=== PATIENT | female | born 1995 | race Caucasian/White ===

== ENCOUNTER 2022-07-06 06:02 | Emergency (ER) | payer BC, SELFPAY ==
--- NOTE | ~2022-07-06 | XR_ITS ---
EXAMINATION: XR chest 1V portable DATE: 07/06/2022 07:07 INDICATION: Shortness of breath. TECHNIQUE: A single frontal view of the chest was obtained. COMPARISON: CT abdomen and pelvis 08/20/2017 FINDINGS: The chest demonstrates clear lungs without pneumonia, pleural effusion, or pneumothorax. Th e heart size is normal. IMPRESSION: 1. No acute cardiopulmonary disease. Reviewed, dictated and finalized at location A.
[2022-07-06 06:18] VITALS: BP 123/90; PULSE 81; RESP 30
--- NOTE | 2022-07-06 06:29 | ED.GENADULT ---
HPI - General Adult General Chief complaint: Upper Respiratory Infection <Markel Prater MD - Last Filed: 07/06/22 07:01> Stated complaint: covid positive 07/04 <Markel Prater MD - Last Filed: 07/06/22 07:01> Time Seen by Provider: 07/06/22 06:16 <Markel Prater MD - Last Filed: 07/06/22 07:01> History of Present Illness HPI narrative: Patient is a 26-year-old female who presents ER with reports of shortness of breath. Was diagnosed on 07/04 with COVID-19 after taking a test. Became symptomatic 1 day prior. Had a fever yesterday. Reports that she has sore throat with sinus congestion and postnasal drip. Occasional cough. Pain with swallowing. She was tested in urgent care. She is not on any antiviral medication. <Markel Prater MD - Last Filed: 07/06/22 07:01> Related Data Allergies/adverse reactions: Allergies Allergy/AdvReac Type Severity Reaction Status Date / Time Penicillins Allergy Severe Hives / Verified 01/04/22 08:46 Red Face <Markel Prater MD - Last Filed: 07/06/22 07:01> Review of Systems Review of Systems: All systems reviewed & are unremarkable except as noted in HPI and below <Markel Prater MD - Last Filed: 07/06/22 07:01> Constitutional: Constitutional: Denies chills, Denies fatigue and Reports fever(s) <Markel Prater MD - Last Filed: 07/06/22 07:01> ENT: Reports nasal congestion and Reports sore throat <Markel Prater MD - Last Filed: 07/06/22 07:01> Cardiovascular: Cardiovascular: Denies chest pain, Denies rapid heart rate and Denies radiating jaw, neck or arm pain <Markel Prater MD - Last Filed: 07/06/22 07:01> Respiratory: Respiratory: Reports cough and Reports dyspnea <Markel Prater MD - Last Filed: 07/06/22 07:01> [facility] Past Medical History Medical History: Medical History (Updated 07/06/22 @ 07:25 by Lizette Viveros MD) Kidney stones <Markel Prater MD - Last Filed: 07/06/22 07:01> Surgical History Surgical History: Surgical History (Updated 07/06/22 @ 06:39 by Markel Prater MD) No pertinent past surgical history <Markel Prater MD - Last Filed: 07/06/22 07:01> Family History Family History: Family History Other Acute myocardial infarction Breast cancer Diabetes mellitus Hypertension <Markel Prater MD - Last Filed: 07/06/22 07:01> Social History Social History: Social History (Updated 01/04/22 @ 08:47 by Opal Gamino MA) Smoking status: Never smoker Alcohol intake: never Substance use: never Substance use type: does not use 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 HEAD: Normocephalic, atraumatic. EYES: PERRL and EOMI. ENT: Mucous membranes moist. Normal-appearing posterior oropharynx. No tonsillar hypertrophy. Uvula nonedematous and midline. NECK: Supple. CHEST: Clear to auscultation. No respiratory distress. HEART: Regular rate and rhythm. Normal peripheral pulses. ABDOMEN: Soft, nontender, nondistended. EXTREMITIES: Normal range of motion. No edema. NEURO: Alert and oriented x3. PSYCH: Normal mood and affect. <Markel Prater MD - Last Filed: 07/06/22 07:01> Course Course Emergency Course: PERC 0. XR pending. <Markel Prater MD - Last Filed: 07/06/22 07:01> Reevaluation(s) Reevaluation #1: Pt CXR normal. Vital signs stable. Pt given decadron and I am hoping this will help with the pharyngitis she is experiencing. We discussed trying to eat cool liquid to help her tolerate PO intake. No sign of space o
[2022-07-06] MEDS: LIDOCAINE HCL 2% VISC SOLN 15 ML UDC PO (06:37)
[2022-07-06 07:19] VITALS: BP 127/88; PULSE 76; RESP 18; O2SAT 99
[2022-07-06] MEDS: DEXAMETHASONE 2 MG TABLET 6 MG PO (07:20)
== END 2022-07-06 07:38 | disposition home or self-care (01) ==
PROVIDERS: Emergency Provider Emergency Medicine; PCP Family Medicine
DX: U07.1 COVID-19 (principal); J06.9 Acute upper respiratory infection, unspecified; Z87.442 Personal history of urinary calculi
CPT/HCPCS: 71045; 99283; J8540

== ENCOUNTER 2023-08-07 15:52 | Outpatient (CLI) | payer BC, SELFPAY ==
--- NOTE | ~2023-08-07 | CT_ITS ---
EXAMINATION: CT abdomen pelvis w con DATE: 08/07/2023 16:36 INDICATION: Acute left upper quadrant abdominal pain. TECHNIQUE: Computed tomography (CT) of the abdomen and pelvis was performed with 100 mL Omnipaque-350 intravenous contrast. Automated exposure control and iterative reconstruction technique were employe d. The dose-length product was 507.90 mGy-cm. COMPARISON: None FINDINGS: Lung bases are clear. Heart size is normal. No pericardial or pleural effusion. Gallbladder is not vi sualized and likely surgically absent. Liver, spleen, pancreas, bilateral adrenal glands and kidneys are normal. Bowels including the appendix are normal. Bladder, retroverted uterus and left adnexa are unremarkable. 2.1 cm peripherally enhancing corpus luteum cyst in the right ovary. No free intraperi toneal gas or fluid. No pathologically enlarged bones are unremarkable. lymphadenopathy. IMPRESSION: 1. Right ovarian corpus luteum cyst. No other acute intra-abdominal/pelvic process. Reviewed, dictated and finalized at location A. IMPRESSION: 1. Right ovarian corpus luteum cyst. No other acute intra-abdominal/pelvic proc ess.
[2023-08-07 17:14] LABS: Basophils Percent Auto 0.4 % (0.2-1.2); Eosinophils Absolute Auto 0.1 K/mm3 (0-0.3); Eosinophils Percent Auto 1.2 % (0-4.4); Hemoglobin 14.3 g/dL (12.0-15.0); Immature Granulocyte Absolute 0.03 K/mm3 (0.00-0.031); Immature Granulocyte Percent A 0.4 % (0-0.5); Lymphocytes Absolute Auto 2.23 K/mm3 (0.9-3.2); Lymphocytes Percent Auto 28.7 % (18.3-44.2); Mean Corpuscular HGB Conc 33.3 g/dl (32-36); Mean Corpuscular Hemoglobin 29.2 pg (26-34); Mean Corpuscular Volume 87.9 fl (80-100); Mean Platelet Volume 9.3 fl (7.4-10.4); Monocytes Absolute Auto 0.7 K/mm3 (0.1-0.6); Monocytes Percent Auto 8.4 % (2.6-8.5); Neutrophils Absolute Auto 4.7 K/mm3 (1.3-6.7); Neutrophils Percent Auto 60.9 % (45.5-73.1); Platelet Count Result 300 k/mm3 (150-375); Red Blood Count 4.89 M/mm3 (4.2-5.4); Red Cell Distribution Width 12.6 % (11.5-14.5); White Blood Count 7.8 K/mm3 (4.5-10.0)
[2023-08-07 17:45] LABS: Alanine Aminotransferase 20 U/L (6-35); Albumin Level 4.7 g/dL (3.5-5.1); Alkaline Phosphatase 52 U/L (38-126); Anion Gap 10 mmol/L (8-16); Aspartate Amino Transferase 24 U/L (14-36); Bilirubin,Total 0.6 mg/dL (0.2-1.3); Blood Urea Nitrogen 11 mg/dL (7-17); Calcium 9.4 mg/dL (8.4-10.2); Carbon Dioxide 26 mmol/L (22-30); Chloride 99 mmol/L (98-107); Cholesterol 185 mg/dL (0-200); Estimated Glomerular Filt Rate > 60; Glucose 92 mg/dL (65-110); HDL Direct 55 mg/dL; Potassium 4.5 mmol/L (3.4-5.0); Sodium 135 mmol/L (137-145); Triglycerides 85 mg/dL (<150)
[2023-08-07 17:57] LABS: LDL Cholesterol Direct 111 mg/dL
[2023-08-07 18:47] LABS: Free T4 Free Thyroxine 1.28 ng/mL (0.78-2.19)
== END 2023-08-07 15:53 | disposition home or self-care (01) ==
PROVIDERS: PCP Family Medicine; Visit Provider Nurse Practitioner Family
DX: R10.9 Unspecified abdominal pain (principal); Z13.220 Encounter for screening for lipoid disorders; Z13.29 Encounter for screening for other suspected endocrine disorder; N83.201 Unspecified ovarian cyst, right side
CPT/HCPCS: 36415; 74177; 80053; 80061; 84439; 84443; 85025; Q9967

== ENCOUNTER 2025-01-15 16:56 | Outpatient (CLI) | payer BC, SELFPAY ==
[2025-01-15 17:13] LABS: Basophils Percent Auto 0.4 % (0.2-1.2); Eosinophils Absolute Auto 0.1 K/mm3 (0-0.3); Hematocrit 43.7 % (37.0-47.0); Hemoglobin 14.4 g/dL (12.0-15.0); Immature Granulocyte Absolute 0.01 K/mm3 (0.00-0.031); Immature Granulocyte Percent A 0.1 % (0-0.5); Lymphocytes Absolute Auto 2.55 K/mm3 (0.9-3.2); Lymphocytes Percent Auto 35.8 % (18.3-44.2); Mean Corpuscular Hemoglobin 29.1 pg (26-34); Mean Corpuscular Volume 88.3 fl (80-100); Mean Platelet Volume 9.1 fl (7.4-10.4); Monocytes Absolute Auto 0.6 K/mm3 (0.1-0.6); Monocytes Percent Auto 7.9 % (2.6-8.5); Neutrophils Absolute Auto 3.8 K/mm3 (1.3-6.7); Neutrophils Percent Auto 53.8 % (45.5-73.1); Platelet Count Result 295 k/mm3 (150-375); Red Blood Count 4.95 M/mm3 (4.2-5.4); Red Cell Distribution Width 12.5 % (11.5-14.5); White Blood Count 7.1 K/mm3 (4.5-10.0)
--- OUTSIDE RECORDS SUMMARY | 2025-01-15 17:38 | XMS_ITS | Clinical Summary ---
Author Organization [address] Address [address] [place] [id number] Care Team Providers Care Back Tender Cloth Printing Name Role Phone Stephany Serrato NP Primary Care Provider [phone] Daniella Garcia MD Unavailable [phone] Allergies Active Allergy Reactions Criticality Noted Date Comments Azithromycin Rash Medium 12/14/2016 In teens Penicillins Unknown 12/14/2016 As , rash Medications dicyclomine (BENTYL) 10 mg capsuleIndicati ons:Abdominal Pain with Cramps Take 1 capsule (10 mg total) by mouth 4 (four) times a day before meals and nightly 60 capsule 4 04/16/20 25 Active Additional Information Patient not taking.Reported on 12/10/2024 Active Problems No known active problems Encounters Date Type Department Care Team Description 12/10/2024 9:00 AM AUDIOMETRIC TECHNICIAN Office Visit [facility] at [address] [address] Bridget Soliman PA Pain and swelling of upper eyelid of left eye (Primary Dx) from Last 3 Months Immunizations Immunization Administration Dates Next Due DTP 04/15/1997,01/07/1997 DTP / HiB 02/12/1996 DTaP 06/04/2000 HPV, Quadrivalent 06/17/2010 HPV9 12/19/2016 Hep A, Adult 12/19/2016 Hep A, Ped Unspecified 06/17/2010 Hep B, Adolescent or Pediatric 01/07/1997,1995,1995 HiB 06/04/2000,04/15/1997,01/07/1997 IPV 06/04/2000 Influenza, Quadrivalent, Monica l Culture-based MDCK, Preservative Free, Antibiotic Free, Intramuscular 11/28/2021,08/28/2019 Influenza, Quadrivalent, Spl it, Preservative Free, Intramuscular 08/04/2018 Influenza, Split 06/17/2010 Influenza, Trivalent, IM (MDV) 08/12/2017 Influenza, Unspecified 08/07/2023(Deferr ed: Patient Refused),11/05/2022(Deferred: Patient Refused) MMR 06/04/2000,01/07/1997 Meningococcal C Conjugate 06/17/2010 OPV 04/15/1997,01/07/1997,02/12/1996 Tdap 06/17/2010 Varicella 01/29/2017,12/26/2016 Surgical History Surgery Date Site/Laterality Comments GALLBLADDER SURGERY N/A Medical History Medical History Date Comments Kidney stones Family History Medical History Relation Name Comments Breast cancer Father's Sister 1 Agatha Breast cancer Father's Sister 2 Aura Relation Name Status Comments Father's Sister 1 Agatha Alive Father's Sister 2 Aura Paternal Grandfather Paternal Grandmother Social History Tobacco Use Types Packs/Day Years Used Date Smoking Tobacco: Never Passive Smoke Exposure: Never Smokeless Tobacco: Never Tobacco Cessation:Counseling Given: Not Answered PHQ-2 Answer Date Recorded PHQ-2 Total Score (If total score is 3 or more points, staff should administer the PHQ-9) 0 08/07/2023 Comments Unknown Sex and Gender Information Value Date Recorded Sex Assigned at Not on file Legal Sex Female 3:48 PM CDT Gender Identity Not on file Sexual Orientation Not on file Obstetrics History Last Filed Vital Signs Vital Sign Reading Time Taken Comments Blood Pressure 102/68 12/10/2024 8:59 AM AUDIOMETRIC TECHNICIAN Pulse 70 12/10/2024 8:59 AM AUDIOMETRIC TECHNICIAN Temperature 36.8 C (98.3 F) 12/10/2024 8:59 AM AUDIOMETRIC TECHNICIAN Respiratory Rate 20 12/10/2024 8:59 AM AUDIOMETRIC TECHNICIAN Oxygen Saturation 98% 12/10/2024 8:59 AM AUDIOMETRIC TECHNICIAN Inhaled Oxygen Concentration - - Weight 80.3 kg (177 lb) 12/10/2024 8:59 AM AUDIOMETRIC TECHNICIAN Height 172.7 cm (5' 8 ) 04/16/2024 4:05 PM CDT Body Mass Index 26.91 04/16/2024 4:05 PM CDT Plan of Treatment Health Maintenance Due Date Last Done Comments Hepatitis C Screening 1995 DTaP/Tdap/Td Vaccine (6 - Td or Tdap) 06/17/2020 06/17/2010, 06/04/2000, 04/15/1997, Additional history exists Cervical Cancer Screening 01/04/2023 01/04/2022 Covid-19 Vaccine ( season) 2024 11/28/2021, 12/08/2020, 11/10/2020 Influenza Vaccine (#1) 2024 , 08/28/2019, 08/04/2018, Additional history exists Depression Screening 08/07/2024 08/07/2023 Regular Well Visit/Exam 18-64 08/14/2024 08/14/2023 Hepatitis B Screening Completed 01/07/1997 , 02/12/1996, 1995 HPV Vaccines Completed 12/19/2016, 06/17/2010 Varicella Vaccines Completed 01/29/2017, 12/26/2016 Pneumococcal vaccine <65 Aged Out No longer eligible based on patient's age to complete this topic Insurance [employer] Care Teams Back Tender Cloth Printing Relationship Specialty Start Date End Date Stephany Serrato NP [address] [place] [address] PCP - General Family Medicine 08/07/23 Daniella Garcia MD [address] [place] [address] Obstetrics and Gynecology 08/07/23
--- OUTSIDE RECORDS SUMMARY | 2025-01-15 17:38 | XMS_ITS | Referral Summary ---
Author Organization [address] Address [address] [place] [id number] Care Team Providers Care Concrete Block Mason Name Role Phone Stephany Serrato NP Primary Care Provider [phone] Daniella Garcia MD Unavailable [phone] Encounters Date Type Department Care Team Description 12/10/2024 9:00 AM STEM DRYER MAINTAINER Office Visit [facility] Con[facility] at [address] [address] Bridget Soliman PA Pain and swelling of upper eyelid of left eye (Primary Dx) from Last 3 Months Allergies Active Allergy Reactions Criticality Noted Date Comments Azithromycin Rash Medium 12/14/2016 In teens Penicillins Unknown 12/14/2016 As infant, rash Medications dicyclomine (BENTYL) 10 mg capsuleIndicati ons:Abdominal Pain with Cramps Take 1 capsule (10 mg total) by mouth 4 (four) times a day before meals and nightly 60 capsule 4 04/16/20 25 Active Additional Information Patient not taking.Reported on 12/10/2024 Active Problems No known active problems Immunizations Immunization Administration Dates Next Due DTP [...] 06/17/2010 OPV 04/15/1997,01/07/1997,02/12/1996 Tdap 06/17/2010 Varicella 01/29/2017,12/26/2016 Social History Tobacco Use Types Packs/Day Years [...] on file Sexual Orientation Not on file Last Filed Vital Signs Vital Sign Reading Time Taken Comments Blood Pressure 102/68 12/10/2024 8:59 AM STEM DRYER MAINTAINER Pulse 70 12/10/2024 8:59 AM STEM DRYER MAINTAINER Temperature 36.8 C (98.3 F) 12/10/2024 8:59 AM STEM DRYER MAINTAINER Respiratory Rate 20 12/10/2024 8:59 AM STEM DRYER MAINTAINER Oxygen Saturation 98% 12/10/2024 8:59 AM STEM DRYER MAINTAINER Inhaled Oxygen Concentration - - Weight 80.3 kg (177 lb) 12/10/2024 8:59 AM STEM DRYER MAINTAINER Height 172.7 cm (5' 8 ) 04/16/2024 4:05 PM CDT Body Mass Index 26.91 04/16/2024 4:05 PM CDT Plan of Treatment Not on file Insurance [facility] ACCESS CHOICE ANTHEM ACCESS CHOICE Care Teams Concrete Block Mason Relationship Specialty Start Date End Date Stephany Serrato NP [address] [facility] [address] [place] [address] PCP - General Family Medicine 08/07/23 Daniella Gacria MD [address] [place] [address] Obstetrics and Gynecology 08/07/23
--- OUTSIDE RECORDS SUMMARY | 2025-01-15 17:39 | XMS_ITS | Referral Summary ---
Author Organization [facility] [employer] Address [address] [facility] [place] [address] Care Team Providers Care Seat Cover Maker Name Role Phone Marciano Batres MD Primary Care Provider [phone] Source Comments [facility] [employer],non-owned Affiliates and Associated Physician Practices is amultiple site organization consisting of ambulatory clinics and hospital sitesin [place], [place], [place] and [place]. This disclosure is being madepursuant to the Care Everywhere program and may not contain all information available regarding this patient. Last updated 18.[facility] [employer] Allergies Active Allergy Reactions Criticality Noted Date Comments Penicillins Unknown 12/14/2016 As infant, rash Azithromycin Rash Medium 12/14/2016 In teens Medications Be aware that medications may not be up to date on this document. Always verify current medications with the patient. No known medications Social History Tobacco Use Types Packs/Day Years Used Date Smoking Tobacco: Never Smokeless Tobacco: Never Alcohol Use Standard Drinks/Week Comments Yes 0 (1 standard drink = 0.6 oz pur e alcohol) occasional Sex and Gender Information Value Date Recorded Sex Assigned at Not on file Gender Identity Not on file Sexual Orientation Not on file Last Filed Vital Signs Vital Sign Reading Time Taken Comments Blood Pressure 118/76 12/22/2019 6:04 PM GRAIN ORIGINATION SPECIALIST Pulse 76 12/22/2019 6:04 PM GRAIN ORIGINATION SPECIALIST Temperature 36.8 C (98.2 F) 12/22/2019 6:04 PM GRAIN ORIGINATION SPECIALIST Respiratory Rate 16 12/22/2019 6:04 PM GRAIN ORIGINATION SPECIALIST Oxygen Saturation 98% 12/22/2019 6:04 PM GRAIN ORIGINATION SPECIALIST Inhaled Oxygen Concentration - - Weight 90.3 kg (199 lb) 12/22/2019 6:04 PM GRAIN ORIGINATION SPECIALIST Height 172.7 cm (5' 8 ) 12/22/2019 6:04 PM GRAIN ORIGINATION SPECIALIST Body Mass Index 30.26 12/22/2019 6:04 PM GRAIN ORIGINATION SPECIALIST Plan of Treatment Not on file Administered Medications Care Teams Seat Cover Maker Relationship Specialty Start Date End Date Marciano Batres MD [address] [place] [address] [address] [place] [address] PCP - General Family Medicine 05/31/17
--- OUTSIDE RECORDS SUMMARY | 2025-01-15 17:39 | XMS_ITS | Clinical Summary ---
Author Organization [facility] Address [address] [place] [id number] Care Team Providers Care Reinforced Steel Placing Supervisor Name Role Phone Unavailable Primary Care Provider Unavailabl e Immunizations Name Administration Dates Next Due MODERNA COVID-19 (12+) MRNA, LNP-S, PF, 100 MCG/ 0.5 ML DOSE 12/08/2020,11/10/2020 Social History Tobacco Use Types Packs/Day Years Used Date Smoking Tobacco: Never Assessed Comments Unknown Sex and Gender Information Value Date Recorded Sex Assigned at Not on file Legal Sex Female 8:00 PM CDT Gender Identity Not on file Sexual Orientation Not on file Last Filed Vital Signs Vital Sign Reading Time Taken Comments Blood Pressure 102/68 06/05/2013 11:33 AM CDT Pulse 72 06/05/2013 11:33 AM CDT Temperature - - Respiratory Rate - - Oxygen Saturation - - Inhaled Oxygen Concentration - - Weight 65.3 kg (144 lb) 06/05/2013 11:33 AM CDT Height - - Body Mass Index - - Plan of Treatment Health Maintenance Due Date Last Done Comments Cervical Cancer Screening Pa p Smear (Age 21 to 29) Every 3 Years 1995 Cervical Cancer Screening 1995 Annual Physical 1998 Hepatitis C 2013 DTaP, Tdap and Td Vaccines ( 2 - Tdap) 2014 06/04/2000, 04/15/1997, 01/07/1997 Hepatitis B Vaccines (1 of - 19+ 3-dose series) 2014 COVID-19 Vaccine (2023-2 5 season) 2024 12/08/2020, 11/10/2020 Influenza Adult (#1) 2024 HPV Vaccines Completed 12/19/2016, 06/17/2010 Meningococcal B Vaccine Aged Out No l onger eligible based on patient's age to complete this topic Meningococcal Vaccine Aged Out No porfirio clary eligible based on patient's age to complete this topic Pneumococcal Vaccine: Pediatrics (0 to 5 Years) and At-Risk Patients (6 to 64 Years) Aged Out No longer eligible b ased on patient's age to complete this topic RSV Immunizations Under 20 Months Aged Out No longer eligible b ased on patient's age to complete this topic
--- OUTSIDE RECORDS SUMMARY | 2025-01-15 17:39 | XMS_ITS | Clinical Summary ---
Author Organization [facility] [employer] Address [address] [facility] [place] [address] Care Team Providers Care Rnp Name Role Phone Marciano Batres MD Primary Care Provider [phone] Source Comments [facility] [employer],non-owned Affiliates and Associated Physician Practices is amultiple site organization consisting of ambulatory clinics and hospital sitesin [place], [place], [place] and [place]. This disclosure is being madepursuant to the Care Everywhere program and may not contain all information available regarding this patient. Last updated 18.[facility] [employer] Allergies Active Allergy Reactions Criticality Noted Date [...] Comments Blood Pressure 118/76 12/22/2019 6:04 PM VACUUM SYSTEM TESTER Pulse 76 12/22/2019 6:04 PM VACUUM SYSTEM TESTER Temperature 36.8 C (98.2 F) 12/22/2019 6:04 PM VACUUM SYSTEM TESTER Respiratory Rate 16 12/22/2019 6:04 PM VACUUM SYSTEM TESTER Oxygen Saturation 98% 12/22/2019 6:04 PM VACUUM SYSTEM TESTER Inhaled Oxygen Concentration - - Weight 90.3 kg (199 lb) 12/22/2019 6:04 PM VACUUM SYSTEM TESTER Height 172.7 cm (5' 8 ) 12/22/2019 6:04 PM VACUUM SYSTEM TESTER Body Mass Index 30.26 12/22/2019 6:04 PM VACUUM SYSTEM TESTER Plan of Treatment Health Maintenance Due Date Last Done Comments PAP SMEAR 1995 HIV SCREENING 2010 HEPATITIS C SCREENING 12/02/2013 DTAP/TDAP/TD VACCINES (1 - Tdap) 2014 HEPATITIS B VACCINE (1 of 3 - 19+ 3-dose series) 2014 COVID-19 VACCINE (1 - 2023-2 5 season) 2024 INFLUENZA VACCINE (#1) 2024 DEPRESSION SCREENING 11/05/2024 ZOSTER VACCINE (1 of 2) 2045 HIB VACCINE Aged Out No longer eligi ble based on patient's age to complete this topic HPV VACCINE Aged Out No longer eligi ble based on patient's age to complete this topic MENINGOCOCCAL (Group B) VACC INE SHARED DECISION-MAKING Aged Out No longer eligibl e based on patient's age to complete this topic MENINGOCOCCAL GROUPS A/C/Y/W VACCINE Aged Out No longer eligible b ased on patient's age to complete this topic PNEUMOCOCCAL VACCINE Aged Out No long er eligible based on patient's age to complete this topic Care Teams Rnp Relationship Specialty Start Date End Date Marciano Batres MD [facility] [place] [id number] PCP - General Family Medicine 05/31/17
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
--- OUTSIDE RECORDS SUMMARY | 2025-01-15 17:39 | XMS_ITS | Data Portability ---
Author Organization [facility] [employer], Main Office Address [address] [place] [address] Assessment Encounter Date Assessment Date Assessment LastModified by Organization Details LastModified Time 03/29/2023 03/29/2023 right upper quadrant pain radiating to back. Cholelithiasis on ultrasound. Suspect gallbladder disease because of her pain. Options discussed with patient. We will schedule robotic assisted possible open cholecystectomy. Risks and benefits discussed main risks include bleeding, infection bile duct bowel injury and bile leak Not available 03/29/2023 11:30:26 04/24/2023 04/24/2023 status post robotic assisted laparoscopic cholecystectomy. Doing very well. Follow-up p.r.n. Not available 04/24/2023 12:27:21 12/04/2023 12/04/2023 right-sided abdominal wall pain possibly secondary to muscle strain sprain or residual from surgical procedure. Continue conservative management with hot compresses and nonsteroidal medications. patient will follow-up in 2-3 months if issue does not seem to improve at all. At that point we could consider MRI to further evaluate Not available 12/04/2023 12:13:08 Plan of Treatment Reminders Order Date Submit Date Provider Last Modified By Organization Details Last Modified Time Details Appointments None recorded. Lab urinalysis, dipstick [address] Maximo Mckeon, [place], [address], 12:01:46 H. pylori, fingerstick 20[email or web address] Maximo Mckeon, [place], [address], 3 11:34:09 Referral None recorded. Procedures None recorded. Surgeries None recorded. Imaging XR, thoracic spine, 2 view 2022 023 [facility] [place], [address] [place] [address] [place], [address], 3 12:41:41 US, gallbladder 2022 023 [facility] [place], [address] [place] [address] [place], [address], 3 15:22:21 Medication Orders None recorded. Patient TargetsNo targets recorded. Patient InstructionsNo instructions recorded. Reason for Referral None Reported. Results Created Date Observation Date Name Description Value Unit Range Abnormal Flag Note LastModifiedBy Organization Detail LastModifiedTime 03/01/2003/01/2023 urina lysis , dipst ick Leukocytes (reference range: negative lynda/ l) Negati ve Not Available [address] Maximo Mckeon, [place], [address], 03/01/2023 11:16:27 03/01/20 23 03/01/2023 urina lysis , dipst ick Nitrite (reference rage: negative mg/dl) negati ve Not Available [address] Maximo Mckeon, [place], [address], 03/01/2023 11:16:27 03/01/20 23 03/01/2023 urina lysis , dipst ick Urobilinogen (reference range: 0.2-1 mg/dl) 0.2 Not Available [address] Maximo Mckeon, [place], [address], 03/01/2023 11:16:27 03/01/20 23 03/01/2023 urina lysis , dipst ick Protein (reference range: negative mg/dl) Trace Not Available [address] Maximo Mckeon, [place], [address], 03/01/2023 11:16:27 03/01/20 23 03/01/2023 urina lysis , dipst ick pH (reference range: 5-7) 5.5 Not Available [address] Maximo Mckeon, [place], [address], 03/01/2023 11:16:27 03/01/20 23 03/01/2023 urina lysis , dipst ick Blood (reference range: negative Nick/ l) Negati ve Not Available [address] Maximo Mckeon, [place], [address], 03/01/2023 11:16:27 03/01/20 23 03/01/2023 urina lysis , dipst ick Specific [place] (reference range: 1.005-1.030) 1.025 Not Available [address] Maximo Mckeon, [place], [address], 03/01/2023 11:16:27 03/01/20 23 03/01/2023 urina lysis , dipst ick Ketone (reference range: negative mg/dl) Trace Not Available [address] Maximo Mckeon, [place], [address], 03/01/2023 11:16:27 03/01/20 23 03/01/2023 urina lysis , dipst ick Bilirubin (reference range: negative mg/dl) Small Not Available [address] Maximo Mckeon, [place], [address], 03/01/2023 11:16:27 03/01/20 23 03/01/2023 urina lysis , dipst ick Glucose (reference range: negative mg/dl) Negati ve Not Available [address] Maximo Mckeon, [place], [address], 03/01/2023 11:16:27 03/01/20 23 03/01/2023 urina lysis , dipst ick Appearance Clear Not Available [address] Maximo Mckeon, [place], [address], 03/01/2023 11:16:27 03/01/20 23 03/01/2023 urina lysis , dipst ick Color Yellow Not Available [address] Maximo M[place], [place], [address], 03/01/2023 11:16:27 03/01/20 23 03/01/2023 H. pylsusu i, robby rstic k H PYLORI negati ve Not Available [address] Maximo Mckeon, [place], [address], 03/01/2023 11:16:09 04/16/20 23 04/16/2023 CBC W/O DIFFE RENTI AL white blood cells 6.5 x10'3 /uL 4.2-10 .8 Not Available [facility] (Lab) [address] [place], [address], 04/16/2023 08:49:10 04/16/20 23 04/16/2023 CBC W/O DIFFE RENTI AL red blood cells 4.77 x10'6 /uL 3.80-5 .20 Not Available [facility] (Lab) [address] [place], [address], 04/16/2023 08:49:10 04/16/20 23 04/16/2023 CBC W/O DIFFE RENTI AL hemoglobin 13.6 g/dL 12.0-1 5.6 Not Available [facility] (Lab) [address] [place], [address], 04/16/2023 08:49:10 04/16/2004/16/2023 CBC W/O DIFFE RENTI AL hematocrit 41.8 % 35.7-4 5.7 Not Available [facility] (Lab) [address] [place], [address], 04/16/2023 08:49:10 04/16/2004/16/2023 CBC W/O DIFFE RENTI AL mean red cell volume 87.6 fL 82.0-9 9.0 Not Available [facility] (Lab) [address] [place], [address], 04/16/2023 08:49:10 04/16/2004/16/2023 CBC W/O DIFFE RENTI AL mean red cell hemoglobin 28.5 pg 27.0-3 3.0 Not Available [facility] (Lab) [address] [place], [address], 04/16/2023 08:49:10 04/16/2004/16/2023 CBC W/O DIFFE RENTI AL mean RBC HGB concentratio n 32.5 g/dL 31.0-3 6.0 Not Available [facility] (Lab) [address] [place], [address], 04/16/2023 08:49:10 04/16/2004/16/2023 CBC W/O DIFFE RENTI AL red cell distribution width 13.1 % 11.8-1 5.5 Not Available [facility] (Lab) [address] [place], [address], 04/16/2023 08:49:10 04/16/20 23 04/16/2023 CBC W/O DIFFE RENTI AL platelets 260 x10'3 /uL 150-40 0 Not Available [facility] (Lab) [address] [place], [address], 04/16/2023 08:49:10 04/16/20 23 04/16/2023 CBC W/O DIFFE NADIRA AL mean platelet volume 8.8 fL 9.0-12 .4 low Not Available [facility] (Lab) [address] [place], [address], 04/16/2023 08:49:10 04/16/20 23 04/16/2023 COMPR EHENS TIM METAB OLIC PANEL sodium 137 mmol/ L 137-14 5 Not Available [facility] (Lab) [address] [place], [address], 04/16/2023 09:13:36 04/16/20 23 04/16/2023 COMPR EHENS TIM METAB OLIC PANEL potassium 4.1 mmol/ L 3.5-5. 1 Not Available [facility] (Lab) [address] [place], [address], 04/16/2023 09:13:36 04/16/20 23 04/16/2023 COMPR EHENS TIM METAB OLIC PANEL chloride 101 mmol/ L 98-107 Not Available [facility] (Lab) [address] [place], [address], 04/16/2023 09:13:36 04/16/20 23 04/16/2023 COMPR EHENS TIM METAB OLIC PANEL carbon dioxide 27 mmol/ L 22-30 Not Available [facility] (Lab) [address] [place], [address], 04/16/2023 09:13:36 04/16/20 23 04/16/2023 COMPR EHENS TIM METAB OLIC PANEL anion gap 13.1 mmol/ L 14-22 low Not Available [facility] (Lab) [address] [place], [address], 04/16/2023 09:13:36 06/10/24 2304/16/2023 COMPR EHENS TIM METAB OLIC PANEL glucose 96 mg/dL 70-99 Not Available [facility] (Lab) [address] [place], [address], 04/16/2023 09:13:36 04/16/20 23 04/16/2023 COMPR EHENS TIM METAB OLIC PANEL BUN 10 mg/dL 8-19 Not Available [facility] (Lab) [address] [place], [address], 04/16/2023 09:13:36 04/16/20 23 04/16/2023 COMPR EHENS TIM METAB OLIC PANEL creatinine 0.56 mg/dL 0.66-1 .25 low Not Available [facility] (Lab) [address] [place], [address], 04/16/2023 09:13:36 04/16/20 23 04/16/2023 COMPR EHENS TIM METAB OLIC PANEL GFR >60 Refer ence Range : [place] ge GFR Healt hy Adult : >60 mL/mi n/1.7 3 m2 Chron ic Kidne y Disea se: 15-60 mL/mi n/1.7 3 m2 Kidne y Failu re: <15/m L/min /1.73 m2 www.n iddk. nih.g ov The MDRD study equat ion has not been valid ated in child brett <18 years of age; pregn ant women ; the elder ly >85 years of age; or in some racia l or ethni c subgr oups, such as [facility] nics. Outsi de the valid ated greg eters , estim ated GFR is less accur ate, requi ring clini tomás judgm ent on a case- by-ca se basis . Clini tomás inter preta tion for other races and ages must be made by the clini talon. The MDRD study equat ion has not been valid ated for the evalu ation of serum creat inine relat ed to nutri aman l statu s or medic ation usage . For perso ns <18 years of age, a pedia tric GFR calcu lator is avail able on the [facility] websi te: https ://sara strickland.hannah alex.o sukhi/pr ofess ional s/kdo qi/gf r_cal culat or Not Available [facility] (Lab) [address] [place], [address], 04/16/2023 09:13:36 04/16/20 23 04/16/2023 COMPR EHENS TIM METAB OLIC PANEL alkaline phosphatase 50 U/L 38-126 Not Available [facility] (Lab) [address] [place], [address], 04/16/2023 09:13:36 04/16/20 23 04/16/2023 COMPR EHENS TIM METAB OLIC PANEL alanine aminotransfe rase 17 U/L 0-35 Not Available [facility] (Lab) [address] [place], [address], 04/16/2023 09:13:36 04/16/20 23 04/16/2023 COMPR EHENS TIM METAB OLIC PANEL aspartate aminotransfe rase 20 U/L 15-37 Not Available [facility] (Lab) [address] [place], [address], 04/16/2023 09:13:36 04/16/20 23 04/16/2023 COMPR EHENS TIM METAB OLIC PANEL bilirubin, total 0.60 mg/dL 0.20-1 .30 Not Available [facility] (Lab) [address] [place], [address], 04/16/2023 09:13:36 04/16/20 23 04/16/2023 COMPR EHENS TIM METAB OLIC PANEL calcium 9.4 mg/dL 8.4-10 .2 Not Available [facility] (Lab) [address] [place], [address], 04/16/2023 09:13:36 04/16/20 23 04/16/2023 COMPR EHENS TIM METAB OLIC PANEL total protein 7.6 g/dL 6.3-8. 2 Not Available [facility] (Lab) [address] [place], [address], 04/16/2023 09:13:36 04/16/20 23 04/16/2023 COMPR EHENS TIM METAB OLIC PANEL albumin 4.1 g/dL 3.4-5. 0 Not Available [facility] (Lab) [address] [place], [address], 04/16/2023 09:13:36 04/16/20 23 04/16/2023 COMPR EHENS TIM METAB OLIC PANEL globulin 3.5 g/dL 2.6-4. 2 Not Available [facility] (Lab) [address] [place], [address], 04/16/2023 09:13:36 04/16/20 23 04/16/2023 COMPR EHENS TIM METAB OLIC PANEL A/G ratio 1.2 ratio 1.0-2. 0 Not Available [facility] (Lab) [address] [place], [address], 04/16/2023 09:13:36 04/18/20 23 04/18/2023 CBC/C OMPLE TE BLD COUNT W/DIF F white blood cells 9.0 x10'3 /uL 4.2-10 .8 Not Available [facility] (Lab) [address] [place], [address], 04/18/2023 06:48:52 04/18/20 23 04/18/2023 CBC/C OMPLE TE BLD COUNT W/DIF F red blood cells 5.01 x10'6 /uL 3.80-5 .20 Not Available [facility] (Lab) [address] [place], [address], 04/18/2023 06:48:52 04/18/20 23 04/18/2023 CBC/C OMPLE TE BLD COUNT W/DIF F hemoglobin 14.3 g/dL 12.0-1 5.6 Not Available [facility] (Lab) [address] [place], [address], 04/18/2023 06:48:52 04/18/2004/18/2023 CBC/C OMPLE TE BLD COUNT W/DIF F hematocrit 43.9 % 35.7-4 5.7 Not Available [facility] (Lab) [address] [place], [address], 04/18/2023 06:48:52 04/18/2004/18/2023 CBC/C OMPLE TE BLD COUNT W/DIF F mean red cell volume 87.6 fL 82.0-9 9.0 Not Available [facility] (Lab) [address] [place], [address], 04/18/2023 06:48:52 04/18/2004/18/2023 CBC/C OMPLE TE BLD COUNT W/DIF F mean red cell hemoglobin 28.5 pg 27.0-3 3.0 Not Available [facility] (Lab) [address] [place], [address], 04/18/2023 06:48:52 04/18/2004/18/2023 CBC/C OMPLE TE BLD COUNT W/DIF F mean RBC HGB concentratio n 32.6 g/dL 31.0-3 6.0 Not Available [facility] (Lab) [address] [place], [address], 04/18/2023 06:48:52 04/18/2004/18/2023 CBC/C OMPLE TE BLD COUNT W/DIF F red cell distribution width 13.2 % 11.8-1 5.5 Not Available [facility] (Lab) [address] [place], [address], 04/18/2023 06:48:52 04/18/2004/18/2023 CBC/C OMPLE TE BLD COUNT W/DIF F platelets 320 x10'3 /uL 150-40 0 Not Available [facility] (Lab) [address] [place], [address], 04/18/2023 06:48:52 04/18/2004/18/2023 CBC/C OMPLE TE BLD COUNT W/DIF F mean platelet volume 8.8 fL 9.0-12 .4 low Not Available [facility] (Lab) [address] [place], [address], 04/18/2023 06:48:52 04/18/2004/18/2023 CBC/C OMPLE TE BLD COUNT W/DIF F neutrophils 61.1 % 39.0-7 2.0 Not Available [facility] (Lab) [address] [place], [address], 04/18/2023 06:48:52 04/18/2004/18/2023 CBC/C OMPLE TE BLD COUNT W/DIF F lymphocytes 26.7 % 16.0-4 7.0 Not Available [facility] (Lab) [address] [place], [address], 04/18/2023 06:48:52 04/18/2004/18/2023 CBC/C OMPLE TE BLD COUNT W/DIF F monocytes 9.2 % 5.0-12 .0 Not Available [facility] (Lab) [address] [place], [address], 04/18/2023 06:48:52 04/18/2004/18/2023 CBC/C OMPLE TE BLD COUNT W/DIF F eosinophils 2.4 % 1.0-7. 0 Not Available [facility] (Lab) [address] [place], [address], 04/18/2023 06:48:52 04/18/2004/18/2023 CBC/C OMPLE TE BLD COUNT W/DIF F basophils 0.4 % 0.0-2. 0 Not Available [facility] (Lab) [address] [place], [address], 04/18/2023 06:48:52 04/18/2004/18/2023 CBC/C OMPLE TE BLD COUNT W/DIF F immature granulocytes 0.2 % 0.00-0 .50 Not Available [facility] (Lab) [address] [place], [address], 04/18/2023 06:48:52 04/18/2004/18/2023 CBC/C OMPLE TE BLD COUNT W/DIF F neutrophils, absolute count 5.47 x10'3 /uL 1.5-8. 0 Not Available [facility] (Lab) [address] [place], [address], 04/18/2023 06:48:52 04/18/2004/18/2023 CBC/C OMPLE TE BLD COUNT W/DIF F lymphocytes, absolute count 2.40 x10'3 /uL 1.07-3 .43 Not Available [facility] (Lab) [address] [place], [address], 04/18/2023 06:48:52 04/18/2004/18/2023 CBC/C OMPLE TE BLD COUNT W/DIF F monocytes, absolute count 0.83 x10'3 /uL 0.29-0 .99 Not Available [facility] (Lab) [address] [place], [address], 04/18/2023 06:48:52 04/18/2004/18/2023 CBC/C OMPLE TE BLD COUNT W/DIF F eosinophils, absolute count 0.22 x10'3 /uL 0.02-0 .53 Not Available [facility] (Lab) [address] [place], [address], 04/18/2023 06:48:52 04/18/20 23 04/18/2023 CBC/C OMPLE TE BLD COUNT W/DIF F basophils, absolute count 0.04 x10'3 /uL 0.01-0 .08 Not Available [facility] (Lab) [address] [place], [address], 04/18/2023 06:48:52 04/18/20 23 04/18/2023 CBC/C OMPLE TE BLD COUNT W/DIF F immature granulocytes ,absolute 0.02 x10'3 /uL 0.00-0 .05 Not Available [facility] (Lab) [address] [place], [address], 04/18/2023 06:48:52 04/18/20 23 04/18/2023 CBC/C OMPLE TE BLD COUNT W/DIF F nucleated red blood cells 0.0 % -0 Not Available [facility] (Lab) [address] [place], [address], 04/18/2023 06:48:52 04/18/2004/18/2023 CBC/C OMPLE TE BLD COUNT W/DIF F NRBC# 0.00 x10'3 /uL Not Available [facility] (Lab) [address] [place], [address], 04/18/2023 06:48:52 04/18/2004/18/2023 COMPR EHENS TIM METAB OLIC PANEL sodium 138 mmol/ L 137-14 5 Not Available [facility] (Lab) [address] [place], [address], 04/18/2023 06:57:57 04/18/2004/18/2023 COMPR EHENS TIM METAB OLIC PANEL potassium 4.3 mmol/ L 3.5-5. 1 Not Available [facility] (Lab) [address] [place], [address], 04/18/2023 06:57:57 04/18/20 23 04/18/2023 COMPR EHENS TIM METAB OLIC PANEL chloride 102 mmol/ L 98-107 Not Available [facility] (Lab) [address] [place], [address], 04/18/2023 06:57:57 04/18/20 23 04/18/2023 COMPR EHENS TIM METAB OLIC PANEL carbon dioxide 24 mmol/ L 22-30 Not Available [facility] (Lab) [address] [place], [address], 04/18/2023 06:57:57 04/18/20 23 04/18/2023 COMPR EHENS TIM METAB OLIC PANEL anion gap 16.3 mmol/ L 14-22 Not Available [facility] (Lab) [address] [place], [address], 04/18/2023 06:57:57 04/18/20 23 04/18/2023 COMPR EHENS TIM METAB OLIC PANEL glucose 94 mg/dL 70-99 Not Available [facility] (Lab) [address] [place], [address], 04/18/2023 06:57:57 04/18/20 23 04/18/2023 COMPR EHENS TIM METAB OLIC PANEL BUN 13 mg/dL 8-19 Not Available [facility] (Lab) [address] [place], [address], 04/18/2023 06:57:57 04/18/20 23 04/18/2023 COMPR EHENS TIM METAB OLIC PANEL creatinine 0.60 mg/dL 0.66-1 .25 low Not Available [facility] (Lab) [address] [place], [address], 04/18/2023 06:57:57 04/18/20 23 04/18/2023 COMPR EHENS TIM METAB OLIC PANEL GFR >60 Refer ence Range : [place] ge GFR Healt hy Adult : >60 mL/mi n/1.7 3 m2 Chron ic Kidne y Disea se: 15-60 mL/mi n/1.7 3 m2 Kidne y Failu re: <15/m L/min /1.73 m2 www.n iddk. [facility].g ov The MDRD study equat ion has not been valid ated in child brett <18 years of age; pregn ant women ; the elder ly >85 years of age; or in some racia l or ethni c subgr oups, such as Hispa nics. Outsi de the valid ated greg eters , estim ated GFR is less accur ate, requi ring clini tomás judgm ent on a case- by-ca se basis . Clini tomás inter preta tion for other races and ages must be made by the clini talon. The MDRD study equat ion has not been valid ated for the evalu ation of serum creat inine relat ed to nutri aman l statu s or medic ation usage . For perso ns <18 years of age, a pedia tric GFR calcu lator is avail able on the [facility] websi te: https ://sara alex.dilip isbell/page reedess ional s/kdo qi/gf r_cal culat or Not Available [facility] (Lab) [address] [place], [address], 04/18/2023 06:57:57 04/18/2004/18/2023 COMPR EHENS TIM METAB OLIC PANEL alkaline phosphatase 47 U/L 38-126 Not Available [facility] (Lab) [address] [place], [address], 04/18/2023 06:57:57 04/18/20 23 04/18/2023 COMPR EHENS TIM METAB OLIC PANEL alanine aminotransfe rase 17 U/L 0-35 Not Available [facility] (Lab) [address] [place], [address], 04/18/2023 06:57:57 04/18/20 23 04/18/2023 COMPR EHENS TIM METAB OLIC PANEL aspartate aminotransfe rase 21 U/L 15-37 Not Available [facility] (Lab) [address] [place], [address], 04/18/2023 06:57:57 04/18/20 23 04/18/2023 COMPR EHENS TIM METAB OLIC PANEL bilirubin, total 0.30 mg/dL 0.20-1 .30 Not Available [facility] (Lab) [address] [place], [address], 04/18/2023 06:57:57 04/18/20 23 04/18/2023 COMPR EHENS TIM METAB OLIC PANEL calcium 9.7 mg/dL 8.4-10 .2 Not Available [facility] (Lab) [address] [place], [address], 04/18/2023 06:57:57 04/18/20 23 04/18/2023 COMPR EHENS TIM METAB OLIC PANEL total protein 8.4 g/dL 6.3-8. 2 high Not Available [facility] (Lab) [address] [place], [address], 04/18/2023 06:57:57 04/18/20 23 04/18/2023 COMPR EHENS TIM METAB OLIC PANEL albumin 4.5 g/dL 3.4-5. 0 Not Available [facility] (Lab) [address] [place], [address], 04/18/2023 06:57:57 04/18/20 23 04/18/2023 COMPR EHENS TIM METAB OLIC PANEL globulin 3.9 g/dL 2.6-4. 2 Not Available [facility] (Lab) [address] [place], [address], 04/18/2023 06:57:57 04/18/20 23 04/18/2023 COMPR EHENS TIM METAB OLIC PANEL A/G ratio 1.2 ratio 1.0-2. 0 Not Available [facility] (Lab) [address] [place], [address], 04/18/2023 06:57:57 04/18/20 23 04/18/2023 URINE HCG QUAL/ POINT OF CARE ur preg NEGATI VE TESTI NG PERFO RMED BY SURGI TOMÁS SERVI SWATI PERSO NNEL. Not Available [facility] (Lab) [address] [place], [address], 04/18/2023 08:38:10 04/18/20 23 04/18/2023 URINE HCG QUAL/ POINT OF CARE lot no. [id number] Not Available [facility] (Lab) [address] [place], [address], 04/18/2023 08:38:10 04/18/20 23 04/18/2023 URINE HCG QUAL/ POINT OF CARE pos QC POSITI VE Not Available [facility] (Lab) [address] [place], [address], 04/18/2023 08:38:10 04/18/20 23 04/18/2023 URINE HCG QUAL/ POINT OF CARE neg QC NEGATI VE Not Available [facility] (Lab) [address] [place], [address], 04/18/2023 08:38:10 07/06/20 22 07/06/2022 XR, chest , 2 view No observ ation record ed. [id number] [facility] [address], [place], [address], 01/03/2023 09:24:53 03/01/20 23 XR, thora cic spine , 3 view [facility] [address] [place] [address] [phone] Patien t Name: AJITH BECKHAM Access ion #: [id number] Sex: F : 1995 1 Locati on: RA2 Attend ing Physic jayro: AMENA IB, RUNDA Orderi ng Physic jayro: AMENA IB, RUNDA Exam Date: 10:40 AM Exam Name: XR T SPINE 3V Admitt ing Diagno sis(es ): RADIOL OGY REPORT - FINAL EXAM: XR T SPINE 3V HISTOR Y: pain 27-yea r-old female with back pain, no known injury . COMPAR IDA: Thorac ic spine radiog raphs dated 2020 TECHNI QUE: Three views of the thorac ic spine were perfor med. FINDIN GS: No fractu re or listhe sis are identi fied about the thorac ic spine. No signif icant degene rative change s. There is slight upper thorac ic dextro scolio sis, new since the prior radiog raphs, possib ly positi onal in nature . IMPRES PHOEBE: Page [facility] t Name: AJITH BECKHAM Access ion #: [id number] Sex: F : 1995 1 Exam Date: 023 10:40 AM Exam Name: XR T SPINE 3V Admitt ing Diagno sis(es ): 1. No fractu re or signif icant degene rative change s of the thorac ic spine. 2. Slight thorac ic dextro scolio sis may be positi onal in nature . Create d and electr onical ly signed by: Lucas erickson MD Signed Date: 11:36 AM (CT) Dictat ed by: Lucas erickson MD DD: 11:36 AM (CT) DT: 11:36 AM (CT) Page 2 of 2 [facility] (Imaging) [address] [place] [address], [address], 03/01/2023 16:08:37 03/01/20 23 03/01/2023 XR, thora cic spine , 2 view No observ ation record ed. [facility] [address], [place], [address], 03/01/2023 16:08:09 03/07/20 23 US, abdom en, limit ed [facility] [address], [place] [address] [phone] Patiian t Name: AJITH BECKHAM Access ion #: [id number] Sex: F : 1995 6 Locati on: RA2 Attend ing Physic jayro: MARCIANO HAIDER Orderi ng Physic jayro: REFUGIO HAIDERDA Exam Date: 03/07/20 8:28 AM Exam Name: US ABD/LT D/ORG/ UQ/GB Admitt ing Diagno sis(es ): RADIOL OGY REPORT - FINAL EXAM: US ABD/LT D/ORG/ UQ/GB HISTOR Y: RUQ pain COMPAR IDA: None. TECHNI QUE: Abdomi nal ultras ound imagin g of the right upper quadra nt is perfor med. Dopple r imagin g of the vascul ar struct ures is perfor med. FINDIN GS: Liver: Border line-m ild hepato megaly . Biliar y system : The common bile duct measur ement is 0.53 cm, the upper limit of normal is 0.6 cm Page 1 of 2 [facility] Nivia t Name: AJITH BECKHAM Access ion #: [id number] Sex: F : 1995 6 Exam Date: 03/07/20 8:28 AM Exam Name: US ABD/LT D/ORG/ UQ/GB Admitt ing Diagno sis(es ): Gallbl adder: The gallbl adder wall measur ement is 0.37 cm. The gallbl adder demons trates multip le intral uminal gallst ones measur ing 7.2 mm or less. The gallbl adder is not disten ded. Pancre as: Incomp letely evalua mel Right kidney : Dimens ions of the right kidney are 10.7 x 4.1 x 4.8 cm. The right kidney appear s . Vascul ature: The aorta and inferi or vena cava are unrema rkable . Portal vein: Hepato petal flow IMPRES PHOEBE: Cholel ithias is withou t biliar y dilati on. Create d and electr onical ly signed by: Catalino paredes MD Signed Date: 03/07/20 2:17 PM (CT) Dictat ed by: Catalino paredes MD (CT) (CT) Page 2 of [address] (Imaging) [address] [place], [address], 03/08/2023 14:05:32 03/07/20 23 03/07/2023 US, chloe ruffin r No observ ation record ed. [address] [place], [address], 03/08/2023 14:05:33 Result Notes None recorded. Problems Name Problem SNOMED Code Status Onset Date Resolution Date Notes Provider Name and Address Organization Details Recorded Time Abdominal pain 00321030 Active Not Available [facility] 3 23:47:30 Dysmenorrhea 502920264 Active Not Available [facility] 3 23:47:30 Fibrocystic disease of breast 68623121 Active Not Available [facility] 3 23:47:30 Knee pain Active Not Available [facility] 3 23:47:30 Pyelonephriti s 86090225 Active Not Available [facility] 3 23:47:30 Pain of breast 61664763 Active Not Available [facility] 3 23:47:30 Right upper quadrant pain 867508648 Active 2022 Not Available [facility] 3 23:47:30 Epigastric pain 23781716 Active 2022 Not Available [facility] 3 23:47:30 Urinary symptoms 984127732 Active 2022 Not Available [facility] 3 23:47:30 Thoracic back pain 999751794 Active 2022 Not Available [facility] 3 23:47:30 Gallstone 996209405 Active 2022 Not Available [facility] 3 23:47:30 Cholelithiasi s without obstruction 93951766 Active 2022 Not Available [facility] 3 23:47:30 Problem Notes None recorded. Procedures Surgical History None recorded. Imaging Results Imaging Date Name Status LastModified by Organiz ation Details LastModified Time 07/06/2022 XR, chest, 2 view completed [id number], [address], 01/03/2023 09:24:53 03/01/2023 XR, thoracic spine, 3 view completed [facility] (Imaging) [address] [place], [address], 03/01/2023 16:08:37 03/01/2023 XR, thoracic spine, 2 view completed [facility] [address] [place], [address], 03/01/2023 16:08:09 03/07/2023 US, abdomen, limited completed [address] (Imaging) [address] [place], [address], 03/08/2023 14:05:32 03/07/2023 US, gallbladder completed [address] [place], [address], 03/08/2023 14:05:33 Procedure Notes None recorded. Medical Equipment None Reported. Allergies Allergen ID Allergen Name Allergen Category Reaction Reaction Severity Criticality Documentation Date Start Date Code Code System Note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
[2025-01-15 17:40] LABS: Beta HCG Quantitative < 2.39 mIU/ML
[2025-01-15 18:00] LABS: Iron 74 ug/dL (37-170)
[2025-01-15 18:09] LABS: Percent Iron Saturation 19 % (20-50)
[2025-01-17 07:53] LABS: FSH 7.2 mIU/mL; Progesterone <0.5 ng/mL
== END 2025-01-15 16:57 | disposition home or self-care (01) ==
PROVIDERS: PCP Family Medicine; Visit Provider Obstetrics & Gynecology
DX: N92.0 Excessive and frequent menstruation with regular cycle (principal); N92.6 Irregular menstruation, unspecified
CPT/HCPCS: 36415; 82670; 82728; 83001; 83498; 83540; 83550; 84144; 84146; 84402; 84403; 84443; 84702; 85025

== ENCOUNTER 2025-01-21 14:41 | Outpatient (CLI) | payer BC, SELFPAY ==
--- NOTE | ~2025-01-21 | US_ITS ---
EXAM: PELVIC ULTRASOUND HISTORY: N92.6 - Irregular menstruation, unspecified COMPARISON: 04/24/2022. Reference is also made to the CT examination of the abdomen and pelvis dated 08/07/2023 FINDINGS: UTERUS: 8.2 x 5.0 x 4.1 cm. The uterus is retroverted and retroflexed. The endometrial complex measures 17 mm. Within the fundus of the uterus is a rounded focus of decreased echogenicity, likely a uterine fibroi d measuring 5 x 4.6 x 4.3 cm. RIGHT OVARY: The right ovary is unremarkable in echogenicity and size measuring 2.3 x 2.1 x 2.7 cm. Dopplerable flow is identified. Dominant follicle within the right ovary. LEFT OVARY: The left ovary is unremarkable in echogenicity and size measuring 1.6 x 1.7 x 2.0 cm Dopplerable flow is identified. No free fluid is identified within the pelvis. IMPRESSION: Fibroid uterus. Otherwise, unremarkable sonographic evaluation of the pelvis, as detailed above. Reviewed, dictated and finalized at location A. IMPRESSION: Fibroid uterus. Otherwise, unremarkable sonographic evaluation of the pelvis, as detailed above .
== END 2025-01-21 14:42 | disposition home or self-care (01) ==
LOC: GOSHIMG 14:41
PROVIDERS: PCP Obstetrics & Gynecology; Visit Provider Obstetrics & Gynecology
DX: D25.9 Leiomyoma of uterus, unspecified (principal); N92.6 Irregular menstruation, unspecified
CPT/HCPCS: 76830; 76856

== ENCOUNTER 2025-09-28 02:11 | Day surgery (SDC) | payer BC, SELFPAY ==
[2025-09-17 08:25] VITALS: BMI 25.5
--- NOTE | 2025-09-17 08:33 | SUR.PREOP ---
[facility] has started construction of its new state of the art ER which will open Spring 2026. With this, we anticipate parking may be a challenge for some our surgical patients and families. Parking spaces are limited but are available for all Surgical, obstetrics, and ER patients sharing this lot. If you arrive and find you are having a hard time finding a parking space, please note that we understand the challenges, please drive around the hospital and park near Hospital Entrance 1. When you enter this entrance, you can ask a volunteer to direct or take you back to the surgical waiting area to check in. We appreciate everyone?s understanding of these expected challenges while we build for your future. Report to the Outpatient Waiting Room, entrance under the green pavilion located off [address], at time 0830 on date 09/28/2025. Planned Procedure Time: 1030.? Time changes happen often and if your time is changed the preop area will call you the afternoon before. - You and your visitor will be asked to self-screen and do not enter if you have any COVID symptoms. Please call surgeon if you need to reschedule. - A mask is optional within the hospital at this time. Patients may have clear liquids (water, carbonated beverages, clear teas, apple juice) until 3 hours prior to surgery with a maximum of 20 ounces. - No food from midnight until time of surgery and no smoking, or chewing tobacco (or any form of nicotine). No chewing gum, candy or mints. Take only the following medications with a SIP of water on the morning of surgery: N/A DO NOT STOP ANY OF YOUR OTHER PRESCRIPTION MEDICATIONS PRIOR TO SURGERY EXCEPT THE FOLLOWING Hold all vitamins and supplements for 3 days per anesthesiologist. Medications to discontinue per physician N/A Date to take last dose N/A Please no make-up, nail senegalese, hairspray, perfume, deodorant, or body powder the day of surgery.? No jewelry (including any body piercings) or valuables the day of surgery, leave them at home.? Please take a shower or bath the night before, or the morning of, surgery with an antibacterial soap.? Wear comfortable, loose fitting clothing.? Children are encouraged to wear pajamas. - Jewelry must be removed prior to entering the operating room.? Rings and piercings that are not removed may be cut off. - The hospital will not accept responsibility for valuables.? - Please leave all valuables, including medications, at home the day of surgery. If you are going home after surgery, a licensed otr flatbed company truck driver must drive you home.? - NO public transportation without another adult if you receive anesthesia. - We recommend that an adult stay with you for 24 hours following discharge. - We also recommend that you do not drive, make important decision, drink alcoholic beverages, or take any drugs that were not prescribed by your health care provider for at least 24 hours after your discharge time. Follow any additional instructions given to you from your surgeon. Telephone instructions given to AJITH ALMONTE and asked if any additional questions and then verbalized understanding. Patient advised to call surgeon office or pre surgery nurse liaison [phone] if any additional questions.
--- OUTSIDE RECORDS SUMMARY | 2025-09-28 02:14 | XMS_ITS | Data Portability ---
Author Organization MD - [facility], Main Office Address [address] [place] [address] Assessment Encounter Date Assessment Date Assessment LastModified [...] recorded. Lab urinalysis, dipstick [address] Maximo Mcke[place], [place], [address], 12:01:46 H. pylori, fingerstick 2022 023 [email or web address] [place], [place], [address], 3 11:34:09 Referral None recorded. Procedures None recorded. Surgeries None recorded. Imaging XR, thoracic spine, 2 view 2022 023 [facility] [place], [address] [place] [address] [place], [address], 3 12:41:41 US, gallbladder 2022 023 [facility], [address] [place] [address] [place], [address], 15:22:21 Medication Orders None recorded. Patient TargetsNo targets recorded. Patient InstructionsNo instructions recorded. Reason for Referral None Reported. Results Created Date Observation Date Name Description Value Unit Range Abnormal Flag Note LastModifiedBy Organization Detail LastModifiedTime 03/01/2003/01/2023 urina lysis , dipst ick Leukocytes (reference range: negative lynda/ l) Negati ve Not Available [address] [place], [place], [address], 03/01/2023 11:16:27 03/01/20 23 03/01/2023 urina lysis , dipst ick Nitrite (reference rage: negative mg/dl) negati ve Not Available [address] [place], [place], [address], 03/01/2023 11:16:27 03/01/20 23 03/01/2023 urina lysis , dipst ick Urobilinogen (reference range: 0.2-1 mg/dl) 0.2 Not Available [address] [place], [place], [address], 03/01/2023 11:16:27 03/01/20 23 03/01/2023 urina lysis , dipst ick Protein (reference range: negative mg/dl) Trace Not Available [address] [place], [place], [address], 03/01/2023 11:16:27 03/01/20 23 03/01/2023 urina lysis , dipst ick pH (reference range: 5-7) 5.5 Not Available [address] [place], [place], [address], 03/01/2023 11:16:27 03/01/20 23 03/01/2023 urina lysis , dipst ick Blood (reference range: negative Nick/ l) Negati ve Not Available [address] [place], [place], [address], 03/01/2023 11:16:27 03/01/20 23 03/01/2023 urina lysis , dipst ick Specific Celoron (reference range: 1.005-1.030) 1.025 Not Available [address] [place], [place], [address], 03/01/2023 11:16:27 03/01/20 23 03/01/2023 urina lysis , dipst ick Ketone (reference range: negative mg/dl) Trace Not Available [address] [place], [place], [address], 03/01/2023 11:16:27 03/01/20 23 03/01/2023 urina lysis , dipst ick Bilirubin (reference range: negative mg/dl) Small Not Available [address] [place], [place], [address], 03/01/2023 11:16:27 03/01/20 23 03/01/2023 urina lysis , dipst ick Glucose (reference range: negative mg/dl) Negati ve Not Available [address] [place], [place], [address], 03/01/2023 11:16:27 03/01/20 23 03/01/2023 urina lysis , dipst ick Appearance Clear Not Available [address] [place], [place], [address], 03/01/2023 11:16:27 03/01/20 23 03/01/2023 urina lysis , dipst ick Color Yellow Not Available [address] [place], [place], [address], 03/01/2023 11:16:27 03/01/20 23 03/01/2023 H. pylsusu i, robby rstic k H PYLORI negati ve Not Available [address] [place], [place], [address], 03/01/2023 11:16:09 04/16/20 23 04/16/2023 CBC W/O DIFFE RENTI AL white blood cells 6.5 x10'3 /uL 4.2-10 .8 Not Available [facility] (Lab) [address] [place], [address], 04/16/2023 08:49:10 04/16/20 23 04/16/2023 CBC W/O DIFFE RENTI AL red blood cells 4.77 x10'6 /uL 3.80-5 .20 Not Available [facility] (Lab) [address] [place], [address], 04/16/2023 08:49:10 04/16/20 23 04/16/2023 CBC W/O DIFFE RENTI AL hemoglobin 13.6 g/dL 12.0-1 5.6 Not Available [facility] (Lab) [address] [place], [address], 04/16/2023 08:49:10 04/16/2004/16/2023 CBC W/O DIFFE RENTI AL hematocrit 41.8 % 35.7-4 5.7 Not Available [facility] (Lab) [address] [facility] [place], [address], 04/16/2023 08:49:10 04/16/2004/16/2023 CBC W/O DIFFE RENTI AL mean red cell volume 87.6 fL 82.0-9 9.0 Not Available [facility] (Lab) [address] [place] [place], [address], 04/16/2023 08:49:10 04/16/2004/16/2023 CBC W/O DIFFE RENTI AL mean red cell hemoglobin 28.5 pg 27.0-3 3.0 Not Available [facility] (Lab) [address] [place], [address], 04/16/2023 08:49:10 04/16/2004/16/2023 CBC W/O DIFFE RENTI AL mean RBC HGB concentratio n 32.5 g/dL 31.0-3 6.0 Not Available [facility] (Lab) [address] [place], [address], 04/16/2023 08:49:10 04/16/2004/16/2023 CBC W/O DIFFE RENTI AL red cell distribution width 13.1 % 11.8-1 5.5 Not Available [facility] (Lab) [address] [place], [address], 04/16/2023 08:49:10 04/16/2004/16/2023 CBC W/O DIFFE RENTI AL platelets 260 x10'3 /uL 150-40 0 Not Available [facility] (Lab) [address] [place], [address], 04/16/2023 08:49:10 04/16/20 23 04/16/2023 CBC W/O DIFFE NADIRA AL mean platelet volume 8.8 fL 9.0-12 .4 low Not Available [facility] (Lab) [address] [place], [address], 04/16/2023 08:49:10 04/16/20 23 04/16/2023 COMPR EHENS TIM METAB OLIC PANEL sodium 137 mmol/ L 137-14 5 Not Available [facility] (Lab) [address] [place], [address], 04/16/2023 09:13:36 04/16/20 23 04/16/2023 COMPR EHENS TIM METAB OLIC PANEL potassium 4.1 mmol/ L 3.5-5. 1 Not Available [facility] (Lab) [address] [place], [address], 04/16/2023 09:13:36 04/16/20 23 04/16/2023 COMPR EHENS TIM METAB OLIC PANEL chloride 101 mmol/ L 98-107 Not Available [facility] (Lab) [address] [place], [address], 04/16/2023 09:13:36 04/16/20 23 04/16/2023 COMPR EHENS TIM METAB OLIC PANEL carbon dioxide 27 mmol/ L 22-30 Not Available [facility] (Lab) [address] [place], [address], 04/16/2023 09:13:36 04/16/20 23 04/16/2023 COMPR EHENS TIM METAB OLIC PANEL anion gap 13.1 mmol/ L 14-22 low Not Available [facility] (Lab) [address] [place], [address], 04/16/2023 09:13:36 04/16/20 23 04/16/2023 COMPR EHENS TIM METAB OLIC PANEL glucose 96 mg/dL 70-99 Not Available [facility] (Lab) [address] [place], [address], 04/16/2023 09:13:36 04/16/20 23 04/16/2023 COMPR EHENS TIM METAB OLIC PANEL BUN 10 mg/dL 8-19 Not Available [facility] (Lab) [address] [place], [address], 04/16/2023 09:13:36 04/16/20 23 04/16/2023 COMPR EHENS TIM METAB OLIC PANEL creatinine 0.56 mg/dL 0.66-1 .25 low Not Available [facility] (Lab) [address] [place], [address], 04/16/2023 09:13:36 04/16/20 23 04/16/2023 COMPR EHENS TIM METAB OLIC PANEL GFR >60 Refer ence Range : [place] ge GFR Healt hy Adult : >60 [...] or ethni c subgr oups, such as Hisnm nics. Outsi de the valid ated greg [...] calcu lator is avail able on the [facility] websi te: https :[email or web address] [email or web address] alex.o sukhi/pr ofess ional s/kdo qi/gf r_cal culat or Not Available [facility] (Lab) [address] [place], [address], 04/16/2023 09:13:36 04/16/20 23 04/16/2023 COMPR EHENS TIM METAB OLIC PANEL alkaline phosphatase 50 U/L 38-126 Not Available [facility] (Lab) [address] [place], [address], 04/16/2023 09:13:36 04/16/20 23 04/16/2023 COMPR EHENS TIM METAB OLIC PANEL alanine aminotransfe rase 17 U/L 0-35 Not Available [facility] (Lab) [address] [place], [address], 04/16/2023 09:13:36 04/16/20 23 04/16/2023 COMPR EHENS TIM METAB OLIC PANEL aspartate aminotransfe rase 20 U/L 15-37 Not Available [facility] (Lab) [address] [place], [address], 04/16/2023 09:13:36 04/16/20 23 04/16/2023 COMPR EHENS TIM METAB OLIC PANEL bilirubin, total 0.60 mg/dL 0.20-1 .30 Not Available [facility] (Lab) [address] [place], [address], 04/16/2023 09:13:36 04/16/20 23 04/16/2023 COMPR EHENS TIM METAB OLIC PANEL calcium 9.4 mg/dL 8.4-10 .2 Not Available [facility] (Lab) [address] [place], [address], 04/16/2023 09:13:36 04/16/20 23 04/16/2023 COMPR EHENS TIM METAB OLIC PANEL total protein 7.6 g/dL 6.3-8. 2 Not Available [facility] (Lab) [address] [place], [address], 04/16/2023 09:13:36 04/16/20 23 04/16/2023 COMPR EHENS TIM METAB OLIC PANEL albumin 4.1 g/dL 3.4-5. 0 Not Available [facility] (Lab) [address] [place], [address], 04/16/2023 09:13:36 04/16/20 23 04/16/2023 COMPR EHENS TIM METAB OLIC PANEL globulin 3.5 g/dL 2.6-4. 2 Not Available [facility] (Lab) [address] [place], [address], 04/16/2023 09:13:36 04/16/20 23 04/16/2023 COMPR EHENS TIM METAB OLIC PANEL A/G ratio 1.2 ratio 1.0-2. 0 Not Available [facility] (Lab) [address] [place], [address], 04/16/2023 09:13:36 04/18/20 23 04/18/2023 CBC/C OMPLE TE BLD COUNT W/DIF F white blood cells 9.0 x10'3 /uL 4.2-10 .8 Not Available [facility] (Lab) [address] [place], [address], 04/18/2023 06:48:52 04/18/20 23 04/18/2023 CBC/C OMPLE TE BLD COUNT W/DIF F red blood cells 5.01 x10'6 /uL 3.80-5 .20 Not Available [facility] (Lab) [address] [place], [address], 04/18/2023 06:48:52 04/18/20 23 04/18/2023 CBC/C OMPLE TE BLD COUNT W/DIF F hemoglobin 14.3 g/dL 12.0-1 5.6 Not Available [facility] (Lab) [address] [place], [address], 04/18/2023 06:48:52 04/18/20 23 04/18/2023 CBC/C OMPLE TE BLD COUNT W/DIF F hematocrit 43.9 % 35.7-4 5.7 Not Available [facility] (Lab) [address] [place] [place], [address], 04/18/2023 06:48:52 04/18/2004/18/2023 CBC/C OMPLE TE BLD COUNT W/DIF F mean red cell volume 87.6 fL 82.0-9 9.0 Not Available [facility] (Lab) [address] [place], [address], 04/18/2023 06:48:52 04/18/2004/18/2023 CBC/C OMPLE TE BLD COUNT W/DIF F mean red cell hemoglobin 28.5 pg 27.0-3 3.0 Not Available [facility] (Lab) [address] [place], [address], 04/18/2023 06:48:52 04/18/2004/18/2023 CBC/C OMPLE TE BLD COUNT W/DIF F mean RBC HGB concentratio n 32.6 g/dL 31.0-3 6.0 Not Available [facility] (Lab) [address] [place], [address], 04/18/2023 06:48:52 04/18/2004/18/2023 CBC/C OMPLE TE BLD COUNT W/DIF F red cell distribution width 13.2 % 11.8-1 5.5 Not Available [facility] (Lab) [address] [place], [address], 04/18/2023 06:48:52 04/18/20 23 04/18/2023 CBC/C OMPLE TE BLD COUNT W/DIF F platelets 320 x10'3 /uL 150-40 0 Not Available [facility] (Lab) [address] [place], [address], 04/18/2023 06:48:52 04/18/2004/18/2023 CBC/C OMPLE TE BLD COUNT W/DIF F mean platelet volume 8.8 fL 9.0-12 .4 low Not Available [facility] (Lab) [address] [place], [address], 04/18/2023 06:48:52 04/18/2004/18/2023 CBC/C OMPLE TE BLD COUNT W/DIF F neutrophils 61.1 % 39.0-7 2.0 Not Available [facility] (Lab) [address] [place], [address], 04/18/2023 06:48:52 04/18/2004/18/2023 CBC/C OMPLE TE BLD COUNT W/DIF F lymphocytes 26.7 % 16.0-4 7.0 Not Available [facility] (Lab) [address] [place], [address], 04/18/2023 06:48:52 04/18/2004/18/2023 CBC/C OMPLE TE BLD COUNT W/DIF F monocytes 9.2 % 5.0-12 .0 Not Available [facility] (Lab) [address] [place], [address], 04/18/2023 06:48:52 04/18/2004/18/2023 CBC/C OMPLE TE BLD COUNT W/DIF F eosinophils 2.4 % 1.0-7. 0 Not Available [facility] (Lab) [address] [place], [address], 04/18/2023 06:48:52 04/18/2004/18/2023 CBC/C OMPLE TE BLD COUNT W/DIF F basophils 0.4 % 0.0-2. 0 Not Available [facility] (Lab) [address] [place], [address], 04/18/2023 06:48:52 04/18/2004/18/2023 CBC/C OMPLE TE BLD COUNT W/DIF F immature granulocytes 0.2 % 0.00-0 .50 Not Available [facility] (Lab) [address] [place], [address], 04/18/2023 06:48:52 04/18/2004/18/2023 CBC/C OMPLE TE BLD COUNT W/DIF F neutrophils, absolute count 5.47 x10'3 /uL 1.5-8. 0 Not Available [facility] (Lab) [address] [place], [address], 04/18/2023 06:48:52 04/18/2004/18/2023 CBC/C OMPLE TE BLD COUNT W/DIF F lymphocytes, absolute count 2.40 x10'3 /uL 1.07-3 .43 Not Available [facility] (Lab) [address] [place], [address], 04/18/2023 06:48:52 04/18/2004/18/2023 CBC/C OMPLE TE BLD COUNT W/DIF F monocytes, absolute count 0.83 x10'3 /uL 0.29-0 .99 Not Available [facility] (Lab) [address] [place], [address], 04/18/2023 06:48:52 04/18/2004/18/2023 CBC/C OMPLE TE BLD COUNT W/DIF F eosinophils, absolute count 0.22 x10'3 /uL 0.02-0 .53 Not Available [facility] (Lab) [address] [place], [address], 04/18/2023 06:48:52 04/18/20 23 04/18/2023 CBC/C OMPLE TE BLD COUNT W/DIF F basophils, absolute count 0.04 x10'3 /uL 0.01-0 .08 Not Available [facility] (Lab) [address] [place], [address], 04/18/2023 06:48:52 04/18/20 23 04/18/2023 CBC/C OMPLE TE BLD COUNT W/DIF F immature granulocytes ,absolute 0.02 x10'3 /uL 0.00-0 .05 Not Available [facility] (Lab) [address] [place], [address], 04/18/2023 06:48:52 04/18/20 23 04/18/2023 CBC/C OMPLE TE BLD COUNT W/DIF F nucleated red blood cells 0.0 % -0 Not Available [facility] (Lab) [address] [place], [address], 04/18/2023 06:48:52 04/18/20 23 04/18/2023 CBC/C OMPLE TE BLD COUNT W/DIF F NRBC# 0.00 x10'3 /uL Not Available [facility] (Lab) [address] [place], [address], 04/18/2023 06:48:52 04/18/20 23 04/18/2023 COMPR EHENS TIM METAB OLIC PANEL sodium 138 mmol/ L 137-14 5 Not Available [facility] (Lab) [address] [place], [address], 04/18/2023 06:57:57 04/18/20 23 04/18/2023 COMPR EHENS TIM METAB OLIC PANEL potassium 4.3 mmol/ L 3.5-5. 1 Not Available [facility] (Lab) [address] [place], [address], 04/18/2023 06:57:57 04/18/20 23 04/18/2023 COMPR EHENS TIM METAB OLIC PANEL chloride 102 mmol/ L 98-107 Not Available [facility] (Lab) [address] [place], [address], 04/18/2023 06:57:57 04/18/20 23 04/18/2023 COMPR EHENS TIM METAB OLIC PANEL carbon dioxide 24 mmol/ L 22-30 Not Available [facility] (Lab) [address] [place], [address], 04/18/2023 06:57:57 04/18/20 23 04/18/2023 COMPR EHENS TIM METAB OLIC PANEL anion gap 16.3 mmol/ L 14-22 Not Available [facility] (Lab) [address] [place], [address], 04/18/2023 06:57:57 04/18/20 23 04/18/2023 COMPR EHENS TIM METAB OLIC PANEL glucose 94 mg/dL 70-99 Not Available [facility] (Lab) [address] [place], [address], 04/18/2023 06:57:57 04/18/2004/18/2023 COMPR EHENS TIM METAB OLIC PANEL BUN 13 mg/dL 8-19 Not Available [facility] (Lab) [address] [place], [address], 04/18/2023 06:57:57 04/18/20 23 04/18/2023 COMPR EHENS TIM METAB OLIC PANEL creatinine 0.60 mg/dL 0.66-1 .25 low Not Available [facility] (Lab) [address] [place], [address], 04/18/2023 06:57:57 04/18/20 23 04/18/2023 COMPR EHENS TIM METAB OLIC PANEL GFR >60 Refer ence Range : [place] ge GFR Healt hy Adult : >60 [...] calcu lator is avail able on the [facility] websi te: https :[email or web address] [email or web address] isbell/page reedess ional s/kdo qi/gf r_cal culat or Not Available [facility] (Lab) [address] [place], [address], 04/18/2023 06:57:57 04/18/2004/18/2023 COMPR EHENS TIM METAB OLIC PANEL alkaline phosphatase 47 U/L 38-126 Not Available [facility] (Lab) [address] [place], [address], 04/18/2023 06:57:57 04/18/2004/18/2023 COMPR EHENS TIM METAB OLIC PANEL alanine aminotransfe rase 17 U/L 0-35 Not Available [facility] (Lab) [address] [place], [address], 04/18/2023 06:57:57 04/18/20 23 04/18/2023 COMPR EHENS TIM METAB OLIC PANEL aspartate aminotransfe rase 21 U/L 15-37 Not Available [facility] (Lab) [address] [place], [address], 04/18/2023 06:57:57 04/18/20 23 04/18/2023 COMPR EHENS TIM METAB OLIC PANEL bilirubin, total 0.30 mg/dL 0.20-1 .30 Not Available [facility] (Lab) [address] [place], [address], 04/18/2023 06:57:57 04/18/20 23 04/18/2023 COMPR EHENS TIM METAB OLIC PANEL calcium 9.7 mg/dL 8.4-10 .2 Not Available [facility] (Lab) [address] [place], [address], 04/18/2023 06:57:57 04/18/20 23 04/18/2023 COMPR EHENS TIM METAB OLIC PANEL total protein 8.4 g/dL 6.3-8. 2 high Not Available [facility] (Lab) [address] [place], [address], 04/18/2023 06:57:57 04/18/2004/18/2023 COMPR EHENS TIM METAB OLIC PANEL albumin 4.5 g/dL 3.4-5. 0 Not Available [facility] (Lab) [address] [place], [address], 04/18/2023 06:57:57 04/18/2004/18/2023 COMPR EHENS TIM METAB OLIC PANEL globulin 3.9 g/dL 2.6-4. 2 Not Available [facility] (Lab) [address] [place], [address], 04/18/2023 06:57:57 04/18/20 04/18/2023 COMPR EHENS TIM METAB OLIC PANEL A/G ratio 1.2 ratio 1.0-2. 0 Not Available [facility] (Lab) [address] [place], [address], 04/18/2023 06:57:57 04/18/20 23 04/18/2023 URINE HCG QUAL/ POINT OF CARE ur preg NEGATI VE TESTI NG PERFO RMED BY SURGI TOMÁS SERVI SWATI PERSO NNEL. Not Available [facility] (Lab) [address] [place], [address], 04/18/2023 08:38:10 04/18/20 23 04/18/2023 URINE HCG QUAL/ POINT OF CARE lot no. [id number] Not Available [facility] (Lab) [address] [place], [address], 04/18/2023 08:38:10 04/18/20 23 04/18/2023 URINE HCG QUAL/ POINT OF CARE pos QC POSITI VE Not Available [facility] (Lab) [address] [place], [address], 04/18/2023 08:38:10 04/18/20 23 04/18/2023 URINE HCG QUAL/ POINT OF CARE neg QC NEGATI VE Not Available [facility] (Lab) [address] [place], [address], 04/18/2023 08:38:10 07/06/20 22 07/06/2022 XR, chest , 2 view No observ ation record ed. [id number] [facility] [address], [place], [address], 01/03/2023 09:24:53 03/01/20 23 XR, thora cic spine , 3 view [facility] [address] [place] [address] Patien t Name: AJITH BECKHAM Access ion #: [id number] Sex: F : 1995 1 Locati on: RA2 Attend ing Physic jayro: ELPEGAT IB, RUNDA Orderi ng Physic jayro: ELKHAT IB, RUNDA Exam Date: 10:40 AM Exam [...] . IMPRES PHOEBE: Page 1 of 2 [facility] t Name: AJITH BECKHAM Access ion #: [id number] Sex: F : 1995 1 Exam Date: 10:40 AM Exam Name: XR [...] 11:36 AM (CT) Page 2 of 2 [facility] (Imaging) [address] [place] [address], [address], 03/01/2023 16:08:37 04/2703/01/2023 XR, thora cic spine , 2 view No observ ation record ed. [facility] [address], [place], [address], 03/01/2023 16:08:09 03/07/20 US, abdom en, limit ed [facility] [address], [place] [address] Patien t Name: AJITH BECKHAM Access ion #: [id number] Sex: F : 1995 6 Locati on: RA2 Attend ing Physic jayro: MARCIANO HAIDER Orderi ng Physic jayro: MARCIANO HAIDER Exam Date: 03/07/20 8:28 AM Exam Name: [...] is 0.6 [address] [facility] Patiian t Name: AJITH BECKHAM Access ion #: [id number] Sex: F : 1995 6 Exam [...] vein: Hepato petal flow IMPRES PHOEBE: Cholel carlias is withou t biliar y dilati on. Create d and electr onical ly signed by: Catalino paredes MD Signed Date: 03/07/20 2:17 PM (CT) Dictat ed by: Catalino paredes MD (CT) (CT) Page [address] (Imaging) [address] [place], [address], 03/08/2023 14:05:32 03/07/20 23 03/07/2023 , chloe vallecillo No observ ation record ed. [address] [place], [address], 03/08/2023 14:05:33 Result Notes Documentation Provider Name and Address Organization Details Recorded Time Xr, Thoracic Spine, 3 View : [address] [id number] Patient Name: AJITH ALMONTE Sex: F : 1995 Location: [facility] Attending Physician: MARCIANO LOPEZ Ordering Physician: MARCIANO LOPEZ Exam Date: 03/01/2023 10:40 AM Exam Name: XR T SPINE 3V Admitting Diagnosis(es): RADIOLOGY REPORT - FINAL EXAM: XR T SPINE 3V HISTORY: pain 27-year-old female with back pain, no known injury. COMPARISON: Thoracic spine radiographs dated 10/03/2021 TECHNIQUE: Three views of the thoracic spine were performed. FINDINGS: No fracture or listhesis are identified about the thoracic spine. No significant degenerative changes. There is slight upper thoracic dextroscoliosis, new since the prior radiographs, possibly positional in nature. IMPRESSION: Page 1 of 2 [facility] Patient Name: AJITH ALMONTE Sex: F : 1995 Exam Date: 03/01/2023 10:40 AM Exam Name: XR T SPINE 3V Admitting Diagnosis(es): 1. No fracture or significant degenerative changes of the thoracic spine. 2. Slight thoracic dextroscoliosis may be positional in nature. Created and electronically signed by: Lucas Silva MD Signed Date: 03/01/2023 11:36 AM (CT) Dictated by: Lucas Silva MD (CT) (CT) Page 2 of 2 [facility] [place] - [facility]rell Kollabora 03/01/2023 15:27:58 Problems Name Problem SNOMED Code Status Onset Date Resolution Date Notes Provider Name and Address Organization Details Recorded Time Abdominal pain 84474249 Active Not Available [facility] 3 23:47:30 Dysmenorrhea 766034610 Active Not Available [facility] 3 23:47:30 Fibrocystic disease of breast 45377543 Active Not Available [facility] 3 23:47:30 Knee pain Active Not Available [facility] 3 23:47:30 Pyelonephriti s 63441181 Active Not Available [facility] 3 23:47:30 Pain of breast 24762528 Active Not Available [facility] 3 23:47:30 Right upper quadrant pain 222884318 Active 2022 Not Available [facility] 3 23:47:30 Epigastric pain 76244957 Active 2022 Not Available [facility] 3 23:47:30 Urinary symptoms 746964378 Active 2022 Not Available [facility] 3 23:47:30 Thoracic back pain 341708206 Active 2022 Not Available [facility] 3 23:47:30 Gallstone 765123114 Active 2022 Not Available [facility] 3 23:47:30 Cholelithiasi s without obstruction 54572474 Active 2022 Not Available [facility] 3 23:47:30 Problem Notes None recorded. Medical Equipment None Reported. Allergies Allergen ID Allergen Name Allergen Category Reaction Reaction Severity Criticality Documentation Date Start Date Code Code System Note Provider Name and Address Organization Details Recorded Time 17081 Product containin g penicilli n (product) medicatio n rash Not available Not available 01/03/2023 29045 8001 SNOMED A CHILD Not Available [facility] 3 09:24:47 Medications Name Sig Start Date [...] 6 HOURS NEEDED FOR FEVER OR PAIN 04/27 /2023 completed Not Available Not Available Not Available [...] Not Available Not Available No t Available (28) 1.5 mg-30 mcg (21)/75 mg (7) [...] Available Not Available No t Available Fluvirin 2406-4360 45 mcg (15 mcg x 3)/0.5 mL [...] mass index (BMI) Body height Oxygen saturation Heart rate Body temperature Body weight Systolic And Diastolic Provider Name and Address Organization Details Last Updated DateTime 2 28.9 kg/m2 172.72 cm 98 % 69 /min 97.1 [degF] 70998.5 5 g 112/82 mm[Hg] Not Available [facility] 3 09:17:11 Date Recorded Body height Body mass index (BMI) Body weight Body temperature Heart rate Respiratory rate Oxygen saturation Systolic And Diastolic Provider Name and Address Organization Details Last Updated DateTime 4 172.72 cm 27.5 kg/m2 87086.2 2 g 97.7 [degF] 78 /min 12 /min 98 % 110/70 mm[Hg] Jemima Lugo [facility] [employer] [facility] 4 11:53:36 Date Recorded Body height Body mass index (BMI) Body weight Body temperature Heart rate Oxygen saturation Systolic And Diastolic Provider Name and Address Organization Details Last Updated DateTime 3 172.72 cm 28.4 kg/m2 70881.7 7 g 97.5 [degF] 75 /min 98 % 102/80 mm[Hg] DOC Enriquez [facility] [employer] [facility] 3 11:06:59 Date Recorded Body height Body mass index (BMI) Body weight Body temperature Oxygen saturation Systolic And Diastolic Provider Name and Address Organization Details Last Updated DateTime 3 172.72 cm 27.6 kg/m2 37446.3 7 g 98.6 [degF] 99 % 110/70 mm[Hg] Samantha Breaux MA [facility] [employer] [facility] 3 11:12:17 Date Recorded Body height Body mass index (BMI) Body weight Body temperature Heart rate Respiratory rate Oxygen saturation Systolic And Diastolic Provider Name and Address Organization Details Last Updated DateTime 3 172.72 cm 27.5 kg/m2 65151.2 2 g 98.6 [degF] 75 /min 14 /min 99 % 110/70 mm[Hg] Jemima Lugo [facility] 12:22:05 Social History Question Answer Notes LastModified by Organizat ion Details LastModified Time Tobacco Smoking Status Never Smoker Dhiraj bruno, [facility] 03/29/2023 10:45:21 In The 14 Days Before Symptom Onset, Have You Had Close Contact With A Laboratory-confirm ed COVID-19 While That Case Was Ill? No Information n ot available 03/29/2023 In The 14 Days Before Symptom Onset, Have You Had Close Contact With A Person Who Is Under Investigation For COVID-19 While That Person Was Ill? No Information not available 03/29/2023 What Is Your Relationship Status? Single [email or web address] Information not available 03/29/2023 Sex: Unknown Functional Status Question Answer Note LastModified by Organizat ion Details LastModified Time What is your level of alcohol consumption? Occasional [id number] Information not available 01/03/2023 Are you currently employed? Yes Information not available 03/29/2023 What is your occupation? [employer] Information not available 03/29/2023 Mental Status None recorded. Family History Nothing [...] Diagnosis SNOMED-CT Code Diagnosis ICD10 Code Diagnosis IMO Codes Diagnosis Note [id number] Marciano Batres MD [facility] [place] [address] 03/21/2021 00:00:00 03/21/2021 21:39:39 [id number] Marciano Batres MD [facility] [place] [place] [address] 10/03/2021 00:00:00 10/03/2021 09:40:56 [id number] Marciano Batres MD [facility] [place] [address] [facility] [address] [place] [address] 11/07/2021 00:00:00 11/07/2021 20:28:35 [id number] Marciano Batres MD [facility] [place] [address] [facility] [address] [place] [address] 03/01/2023 10:59:13 03/01/2023 11:48:49 Right upper quadrant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
--- OUTSIDE RECORDS SUMMARY | 2025-09-28 02:14 | XMS_ITS | Clinical Summary ---
Author Organization [facility] Address [address] [place] [address] Care Team Providers Care Dehairing Machine Tender Name Role Phone Serrato Stephany BARTLETT-SHIRT TURNER Primary Care Provider [phone] Source Comments [facility]),non-owned Affiliates and Associated Physician Practices is amultiple site organization consisting of ambulatory clinics and hospital sitesin [place], [place], [place] and [place]. This disclosure is being madepursuant to the Care Everywhere program and may not contain all information available regarding this patient. Last updated 18.[facility] Allergies Active Allergy Reactions Criticality Noted Date Comments Penicillins Unknown 12/14/2016 As infant, rash Azithromycin Rash Medium 12/14/2016 In teens Medications * Be aware that medications may not be up to date on this document. Alwaysverify current medications with the patient. ibuprofen (Motrin) 400 MG tablet Take 1 (one) tablet by mouth every 6 hours as needed for Pain Active acetaminophen (Tylenol) 325 MG tablet Take 1 (one) tablet by mouth every 4 hours as needed for Fever or Pain Maximum allowable Acetaminophen amount = 4 Grams (4000 mg) / 24 hours. Active Family History Medical History Relation Name Comments cardia arres Father Cancer - Breast Other paunt Cancer - Breast Paternal Aunt paunt Cancer - Breast Paternal Grandmother Relation Name Status Comments Father Other paunt Paternal Aunt paunt Alive Paternal Grandmother Social History Tobacco Use Types Packs/Day Years Used Date Smoking Tobacco: Never Smokeless Tobacco: Never Tobacco Cessation:Counseling Given: Not Answered Alcohol Use Standard Drinks/Week Comments Yes 0 (1 standard drink = 0.6 oz pur e alcohol) occasional PHQ-2 Answer Date Recorded Patient Health Questionnaire-2 Score 0 05/05/2025 Comments No Sex and Gender Information Value Date Recorded Sex Assigned at Not on file Legal Sex Female 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 Gender Identity Not on file Sexual Orientation Not on file Last Filed Vital Signs Vital Sign Reading Time Taken Comments Blood Pressure 112/70 05/05/2025 1:57 PM CDT Pulse 76 12/22/2019 6:04 PM CONTINUOUS WASHER OPERATOR Temperature 36.8 C (98.2 F) 12/22/2019 6:04 PM CONTINUOUS WASHER OPERATOR Respiratory Rate 16 12/22/2019 6:04 PM CONTINUOUS WASHER OPERATOR Oxygen Saturation 98% 12/22/2019 6:04 PM CONTINUOUS WASHER OPERATOR Inhaled Oxygen Concentration - - Weight 78 kg (172 lb) 05/05/2025 1:57 PM CDT Height 175.3 cm (5' 9) 05/05/2025 1:57 PM CDT Body Mass Index 25.4 05/05/2025 1:57 PM CDT Plan of Treatment Health Maintenance Due Date Last Done Comments HIV SCREENING 2010 HEPATITIS C SCREENING 12/02/2013 DTAP/TDAP/TD VACCINES (1 - Tdap) 2014 HEPATITIS B VACCINE (1 of 3 - 19+ 3-dose series) 2014 PAP SMEAR 2016 HPV VACCINE (1 - 3-dose SCDM series) 2022 COVID-19 VACCINE ( season) 2025 11/28/2021, 12/08/2020, 11/10/2020 INFLUENZA VACCINE (#1) 2025 , 08/28/2019, 08/04/2018, Additional history exists ZOSTER VACCINE (1 of 2) 2045 DEPRESSION SCREENING Completed 05/05/2025 HIB VACCINE Aged Out No longer eligi ble based on patient's age to complete this topic MENINGOCOCCAL (Group B) VACCINE SHARED DECISION-MAKING Aged Out No longer eligible based on patient's age to complete this topic MENINGOCOCCAL GROUPS A/C/Y/W VACCINE Aged Out No longer eligible based on patient's age to complete this topic PNEUMOCOCCAL VACCINE Aged Out No long er eligible based on patient's age to complete this topic [place] [address] [address] [place] [address] SELF PAY NO INSURANCE Member Subscriber Plan / Payer (Ef fective for All Dates) Name:Cosme Mendes I Member ID:Not on file Relation to Subscriber:Self Name:Cosme Mendes I Subscriber ID:Not on file Payer ID:Not on file Group ID:Not on file Type:Self Pay Address: [facility] [employer] [place] [address] Care Teams Dehairing Machine Tender Relationship Specialty Start Date End Date Stephany Serrato APNP-SHIRT TURNER [address] [address] PCP - General Family Medicine 05/05/25
--- OUTSIDE RECORDS SUMMARY | 2025-09-28 02:14 | XMS_ITS | Clinical Summary ---
Author Organization [address] Address [address] [place] [address] Care Team Providers Care Exhibitor Sales Name Role Phone Stephany Serrato NP Primary Care Provider [phone] Daniella Garcia MD Unavailable [phone] Allergies Active Allergy Reactions Criticality Noted Date Comments Azithromycin Rash Medium 12/14/2016 In teens Penicillins Unknown 12/14/2016 As infant, rash Medications dicyclomine (BENTYL) 10 mg capsuleIndicati ons:Abdominal Pain with Cramps Take 1 capsule (10 mg total) by mouth 4 (four) times a day before meals and nightly 60 capsule Active Additional Information Patient not taking.Reported on 04/03/2025 Active Problems Problem Noted Date Diagnosed Date Abdominal pain 04/03/2025 Dysmenorrhea 04/03/2025 Fibrocystic disease of breast 04/03/2025 Pain of breast 04/03/2025 Pyelonephritis 04/03/2025 Cholelithiasis without obstruction 03/29/2023 Gallstone 03/08/2023 Epigastric pain 03/01/2023 Right upper quadrant pain 03/01/2023 Symptoms involving urinary system 03/01/2023 Thoracic back pain 03/01/2023 Immunizations Immunization Administration Dates Next Due DTP [...] Sign Reading Time Taken Comments Blood Pressure 100/60 04/03/2025 8:15 AM CDT Pulse 74 04/03/2025 8:15 AM CDT Temperature 36 C (96.8 F) 04/03/2025 8:15 AM CDT Respiratory Rate 14 04/03/2025 8:15 AM CDT Oxygen Saturation 99% 04/03/2025 8:15 AM CDT Inhaled Oxygen Concentration - - Weight 76.7 kg (169 lb) 04/03/2025 8:15 AM CDT Height 172.7 cm (5' 8) 04/03/2025 8:15 AM CDT Body Mass Index 25.7 04/03/2025 8:15 AM CDT Plan of Treatment Health Maintenance Due Date Last Done Comments Hepatitis C Screening 1995 DTaP/Tdap/Td Vaccine (6 - Td or Tdap) 06/17/2020 06/17/2010, 06/04/2000, 04/15/1997, Additional history exists Cervical Cancer Screening 01/04/2023 01/04/2022 Depression Screening 08/07/2024 08/07/2023 Regular Well Visit/Exam 18-64 08/14/2024 08/14/2023 Covid-19 Vaccine ( season) 2025 11/28/2021, 12/08/2020, 11/10/2020 Influenza Vaccine (#1) 2025 , 08/28/2019, 08/04/2018, Additional history exists Hepatitis B Screening Completed 01/07/1997 , 02/12/1996, 1995 HPV Vaccines Completed 12/19/2016, 06/17/2010 Varicella Vaccines Completed 01/29/2017, 12/26/2016 Pneumococcal vaccine <65 Aged Out No longer eligible based on patient's age to complete this topic Insurance [facility] [employer] CHOICE [facility] ACCESS CHOICE Care Teams Exhibitor Sales Relationship Specialty Start Date End Date Stephany Serrato NP [address] [place], [place] [id number] PCP - General Family Medicine 08/07/23 Daniella Garcia MD [address] [place] [id number] Obstetrics and Gynecology 08/07/23
--- OUTSIDE RECORDS SUMMARY | 2025-09-28 02:14 | XMS_ITS | Clinical Summary ---
Author Organization [facility] Address [address] [place] [address] Care Team Providers Care Gas Plant Operator Name Role Phone Unavailable Primary Care Provider Unavailabl e Immunizations Immunization Administration Dates Next Due MODERNA COVID-19 (12+) [...] 01/07/1997 Hepatitis B Vaccines (1 of - + 3-dose series) 2014 COVID-19 Vaccine (2024-2 6 season) 2025 12/08/2020, 11/10/2020 Influenza Adult (#1) 2025 HPV Vaccines Completed 12/19/2016, 06/17/2010 Hepatitis A Vaccines Aged Out No long er eligible based on patient's age to complete this topic Meningococcal B Vaccine Aged Out No l onger eligible based on patient's age to complete this topic Meningococcal Vaccine Aged Out No porfirio clary eligible based on patient's age to complete this topic Pneumococcal Vaccine: Pediatrics (0 to 5 Years) and At-Risk Patients (6 to 49 Years) Aged Out No longer eligible b ased on patient's age to complete this topic RSV Immunizations Under 20 Months Aged Out No longer eligible b ased on patient's age to complete this topic
--- NOTE | 2025-09-28 10:03 | PM.IMHP ---
H&P: HPI History of Present Illness Date/Time: 09/28/25 10:03 Chief Complaint: AUB Narrative: 29 year old female who presents for hysteroscopy D&C for management of abnormal uterine bleeding and uterine polyp. Review of Systems Cardiovascular: Cardiovascular: Denies chest pain, Denies leg edema, Denies palpitations, Denies dyspnea and Denies dyspnea on exertion Respiratory: Respiratory: Denies cough, Denies dyspnea and Denies dyspnea on exertion Gastrointestinal: Gastrointestinal: Denies abdominal pain, Denies constipation, Denies diarrhea, Denies nausea and Denies vomiting Genitourinary: Genitourinary: Denies hematuria, Denies urinary frequency, Denies dysuria, Denies pelvic pain, Denies urinary incontinence and Denies vaginal discharge Neurologic: Reports system reviewed and no additional complaints, except as documented Psychiatric: Psychiatric: Reports no additional psychiatric complaints Endocrine: Endocrine: Denies palpitations PMFSH Past Medical History Medical History Kidney stones Surgical History Surgical History History of cholecystectomy No pertinent past surgical history Family History Family History Other Acute myocardial infarction Breast cancer Diabetes mellitus Hypertension Social History Social History (Updated 02/03/25 @ 08:06 by Elver Bennett MA) Smoking status: Never smoker Alcohol intake: never Substance use: never Substance use type: does not use Do You Feel Safe in your Home?: Yes Lack of Transportation: No Lack of Food: Never True Current Housing: I Have Housing Concerned About Future Housing: No Difficulty Paying Gas/Electric Bills: No Difficulty Paying for Meds: No Currently Unemployed: No Education: Master's Degree or Higher Difficulty w/ Childcare or Family Care: No Living arrangements: with family Occupation/Education: occupation 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 Gender identity (if verbalized by the patient): Female Sexual Orientation (if Verbalized by the Patient): Straight or Heterosexual Spiritual care concerns: No Agree to blood products: No Meds Home Medications and Allergies Home Medications ?Medication ?Instructions ?Recorded ?Confirmed ?Type No Home Medications 09/17/25 09/17/25 History Allergies Allergy/AdvReac Type Severity Reaction Status Date / Time Penicillins Allergy Severe Hives / Verified 09/17/25 08:41 Red Face Exam Const: General: no acute distress Eyes: EOM: EOMs intact bilaterally Neck: Neck: supple Thyroid: thyroid normal Chest: Breast/axilla inspection: normal inspection of the breasts Breast/axilla palpation: normal palpation of the breasts, normal palpation of the axillae and no axillary lymphadenopathy Resp: Effort & Inspection: normal respiratory effort Auscultation: clear to auscultation bilaterally Cardio: Rate: regular rate Rhythm: regular rhythm GI: Inspection: non-distended GI Palp: Yes Soft to palpation, No Tenderness to palpation present (GI) and No Guarding due to palpation present (GI) Auscultation: normal bowel sounds : General: No bladder normal to palpation External Female Exam: normal external appearance Speculum Exam - Vagina: normal vaginal discharge and No vaginal bleeding Speculum Exam - Cervix: nontender Bimanual exam- vagina & uterus: No bladder normal to palpation and No Cervical tenderness present OB/external & speculum: No vaginal bleeding Skin: General skin exam: normal color and no rashes or lesions noted Neuro: Cognition (Neuro): normal cognition Speech: normal speech Extrem: General: normal to inspection and no edema Psych: Mental Status: mental status grossly normal Affect: normal affect Assessment and Plan Assessment and plan (1) Menorrhagia: Code(s): N92.0 - Excessive and frequent menstruation with regular cycle Status: Acute Assessment and Plan: 29-year-old female who presents for hysteroscopy D&C Has a long history of menorrhagia Patient with known uterine fibroid Pelvic imaging also suggest endometrial polyp Patient consented for hysteroscopy D&C Risks, benefits, alternatives discussed (2) Uterine polyp: Code(s): N84.0 - Polyp of corpus uteri Status: Acute
[2025-09-28 10:15] VITALS: BP 117/74; PULSE 65; TEMP 36.6; O2SAT 100; BMI 26.3
[2025-09-28] MEDS: ACETAMINOPHEN 500 MG TABLET 1000 MG PO (10:15)
[2025-09-28] MEDS: LACTATED RINGERS 1,000 ML 30 ML IV CONT (10:15)
[2025-09-28 10:42] LABS: Hematocrit 43.0 % (37.0-47.0); Hemoglobin 14.2 g/dL (12.0-15.0)
--- NOTE | 2025-09-28 10:42 | WPDHPUPDATE1 ---
History and Physical Update Update Date/Time: 09/28/25 10:42 History and Physical has been reviewed, including an updated exam of the patient. There are NO changes in the patient's condition. Risks, benefits, and alternatives have been discussed and questions answered. Patient agrees to proceed with procedure.
--- NOTE | 2025-09-28 10:46 | WPDANESEPPF ---
Anes - Initial Pre Proc Eval Procedure: Operation Date: 09/28/25 12:00 Proposed Procedures p Hysteroscopy Dilation and Curettage with Polypectomy - Kermit Dejesus MD Date/Time: 09/28/25 10:46 Surgeon: Kermit Dejesus MD Pre Op Diagnosis: Uterine polyp Patient Data Age: 29 Gender: F Height: 1.73 m Weight: 76.2 kg Allergies Allergy/AdvReac Type Severity Reaction Status Date / Time Penicillins Allergy Severe Hives / Verified 09/17/25 08:41 Red Face Home Medications ?Medication ?Instructions ?Recorded ?Confirmed ?Type No Home Medications 09/17/25 09/17/25 History Laboratory Tests 09/28/25 10:38 Hgb 14.2 g/dL (12.0-15.0) Hct 43.0 % (37.0-47.0) : patient denies HCG: negative Patient hx anesthesia problems: none Family hx anesthesia problems: none Results Review: All pre-operative results and documents have been reviewed as part of the pre-operative evaluation. [facility] Past Medical History Medical History Kidney stones Surgical History Surgical History History of cholecystectomy No pertinent past surgical history Family History Family History Other Acute myocardial infarction Breast cancer Diabetes mellitus Hypertension Social History Social History Smoking status: Never smoker Alcohol intake: never Substance use: never Substance use type: does not use Do You Feel Safe in your Home?: Yes Lack of Transportation: No Lack of Food: Never True Current Housing: I Have Housing Concerned About Future Housing: No Difficulty Paying Gas/Electric Bills: No Difficulty Paying for Meds: No Currently Unemployed: No Education: Master's Degree or Higher Difficulty w/ Childcare or Family Care: No Living arrangements: with family Occupation/Education: occupation 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 Gender identity (if verbalized by the patient): Female Sexual Orientation (if Verbalized by the Patient): Straight or Heterosexual Spiritual care concerns: No Agree to blood products: No Anes - Eval Final PreProcedure Day of Procedure 09/28/25 10:46 Patient weight: normal Heart: regular rate and rhythm Lungs: normal air movement Airway: Mallampati scale class II Neurological: alert and oriented Last oral intake: >/= 8 hours ASA classification: I Emergent: no Anesthetic plan: proceed Anesthesia type and monitoring: general GIVS and standard monitoring Results Review: All pre-operative results and documents have been reviewed as part of the pre-operative evaluation. Informed Consent: The patient's anesthetic plan and its attendant risks and benefits were discussed with the patient/family/POA. Questions were solicited and answers provided to the satisfaction of the patient/family/POA.
--- NOTE | 2025-09-28 10:53 | P.PNAN_ITS ---
Anes - Eval Final PreProcedure Day of Procedure 09/28/25 10:53 Patient weight: normal Heart: regular rate and rhythm Lungs: clear to auscultation Airway: Mallampati scale class II Neurological: alert and oriented Last oral intake: >/= 8 hours ASA classification: I Emergent: no Anesthetic plan: proceed Anesthesia type and monitoring: general GIVS and standard monitoring Results Review: All pre-operative results and documents have been reviewed as part of the pre- operative evaluation. Informed Consent: The patient's anesthetic plan and its attendant risks and benefits were discussed with the patient/family/POA. Questions were solicited and answers provided to the satisfaction of the patient/family/POA.
[2025-09-28] MEDS: KETOROLAC 30 MG/ML VIAL (*BKC) IV PUSH (11:05)
--- NOTE | 2025-09-28 11:12 | S_PTH ---
PATIENT: Cosme Mendes I LOC: [facility] U#:[id number] AGE/SX: 29/F ROOM: RE09/28/[address]: Kermit Dejesus MD : 1995 BED: DIS: 09/28/2025 SPEC #: [id number] RECD: 09/28/25 13:25 STATUS: LEANNE REQ #: [id number] JOSE: 09/28/25 11:[address]: Kermit Dejesus DEPT: [facility] Surgical RECD BY: Venessa Harvey ENTERED: 09/28/25 13:26 SP TYPE: Surgical OTHR DR: Stephany Serrato, QUALIFICATIONS EXAMINER Tissues: A - Endometrial Curettings Procedures: Hematoxylin and Eosin Stain Gross and Microscopic Level 4
--- NOTE | 2025-09-28 11:17 | W.PM.PROC2 ---
Procedure Note - Detailed Date of Procedure 09/28/25 Pre-op Diagnosis Uterine polyp AUB Post-op Diagnosis Same Procedure Performed hysteroscopy dilation & curettage Surgeon Kermit Dejesus MD Anesthesia General Indications abnormal uterine bleeding Findings globally thickened endometrium. Normal tubal ostia bilaterally. No obvious endometrial polyps noted Description of Procedure Cosme Mendes presents for the above procedure. She was counseled as to the indications, risks, benefits, and alternatives to surgery, with the risks including bleeding, infection, damage to surrounding organs, VTE, and complications of anesthesia. Her verbal and written consent was obtained. PROCEDURE: The patient was taken to the OR and general anesthesia induced. She was prepped and draped in [place] stirrups with support of the back and bilateral lower extremities. I/O catheterization performed of the bladder. The above findings were noted. A single tooth tenaculum was placed on the anterior lip of the cervix. The uterus sounded to 8 cm. The cervix was dilated with sequential Milvia dilators. Hysteroscopy, using a normal saline medium, was performed and showed the above findings. Sharp uterine curettage was then performed and tissue placed on Telfa. The tenaculum was removed and hemostasis was observed. The patient tolerated the procedure well. Sponge, lap, and needle counts were correct. The patient had SCD's on throughout the case for VTE prophylaxis. The patient was taken to the recovery room in stable condition. Estimated Blood Loss 5 Drains No Packing No Pathology Yes (endometrial curettings ) Complications No immediate complications Condition Stable Disposition PACU [facility] Billing Surgery - Charge Forward: Surgery Billing
[2025-09-28 11:22] VITALS: BP 120/75; PULSE 64; RESP 14; O2SAT 98
[2025-09-28 11:50] VITALS: BP 116/77; PULSE 63; RESP 20
[2025-09-28 11:52] LABS: BEDSIDEPREGUCG Negative (Negative)
[2025-09-28] MEDS: oxyCODONE HCL (*CRX) 5 MG TAB IR PO (11:52)
[2025-09-28 12:20] VITALS: BP 108/69; PULSE 59; RESP 20
[2025-09-28 12:40] VITALS: BP 111/73; PULSE 68; RESP 20
== END 2025-09-28 12:44 | disposition home or self-care (01) ==
PROVIDERS: PCP Nurse Practitioner Family; Visit Provider Student in an Organized Health Care Education/Training Program
PROC: 0U5B8ZZ Destruction of Endometrium, Via Natural or Artificial Opening Endoscopic (ICD-10-PCS; CPT 58563; principal; 2025-09-28 12:00)
DX: R93.89 Abnormal findings on diagnostic imaging of other specified body structures (principal); Z90.49 Acquired absence of other specified parts of digestive tract; Z87.442 Personal history of urinary calculi; Z80.3 Family history of malignant neoplasm of breast; Z82.49 Family history of ischemic heart disease and other diseases of the circulatory system
CPT/HCPCS: 58558; 36415; 85014; 85018; 88305; A9270; J1885; J2003; J2250; J2405; J2704; J3010; J7120